=== PATIENT | female | born 1965 | race Caucasian/White ===

== ENCOUNTER 2019-04-13 07:46 | Day surgery (SDC) | payer MEDICARE, MEDICAID, SELFPAY ==
[2019-04-11 12:29] VITALS: BMI 41.1
[2019-04-11 13:12] LABS: OR HCG Qualitative Urine Negative (Negative)
[2019-04-11 13:53] LABS: Add Urine Microscopic? NO
[2019-04-11 14:01] LABS: Urine Appearance Clear (CLEAR); Urine Color Yellow (Yellow)
[2019-04-11 14:02] LABS: Bilirubin Urine Neg (NEGATIVE); Blood Urine Neg (Negative); Glucose Urine UA Norm (Normal); Ketones Urine Negative (Negative); Leukocyte Esterase Urine Negative (Negative); Nitrate Urine Negative (Negative); Protein Urine Neg (Negative); Specific Gravity, Urine 1.005 (1.005-1.030); Sulfosalicylic Acid Urine Negative; Urobilinogen Urine Norm (Negative)
[2019-04-11 16:22] LABS: Hematocrit 45.5 % (37.0-47.0); Hemoglobin 14.5 g/dL (11.5-15.3); Mean Corpuscular HGB Conc 31.9 g/dL (30.0-36.0); Mean Corpuscular Hemoglobin 30.4 pg (28.0-34.0); Mean Corpuscular Volume 95.4 fL (81-99); Mean Platelet Volume 11.7 fL (7.4-10.4); Platelet Count 215 10^3/cmm (130-400); Red Blood Count 4.77 10^6/uL (4.1-5.3); Red Cell Distribution Width 12.9 % (12.1-15.1); White Blood Count 9.1 10^3/uL (4.0-10.0)
[2019-04-11 16:57] LABS: Anion Gap 16.6 (5-19); Blood Urea Nitrogen 13 mg/dL (6-20); Calcium 10.4 mg/Dl (8.6-10.0); Carbon Dioxide 29 mmol/L (22-29); Chloride 100 mmol/L (98-107); Glomerular Filtration Rate 75.3 mL/min (90-130); Glucose 108 mg/dL (74-109); Potassium 4.6 mmol/L (3.5-5.1); Sodium 141 mmol/L (136-145)
[2019-04-11 23:17] LABS: Absolute Segmented Neutrophil 6.4 10/cmm (1.6-7.1); Lymphocytes 24 %; Monocytes Absolute 0.5 10^3/cmm (0.1-0.6); Segmented Neutrophils 71 %; Total Cells Counted 100 (0-100)
[2019-04-11 23:18] LABS: Giant Platelets Trace; Platelet Estimate Normal (Normal)
[2019-04-13] VITALS (7 sets, daily range): BP systolic 103–139; BP diastolic 58–91; PULSE 81–98; RESP 18; TEMP 36.1–37.1; O2SAT 90–96
[2019-04-13] MEDS: sodium chloride 0.9% 1,000 ML 30 ML IV (09:44)
--- NOTE | 2019-04-13 10:23 | PM.HPUD ---
H&P update H&P Update: DATE OF SURGERY/PROCEDURE: 04/13/19 DATE H&P PERFORMED: 04/11/19 H&P UPDATE INFORMATION: H&P completed within last 30 days, No changes to prior documentation and H&P is in [facility] [place] EMR on date indicated PLANNED PROCEDURE: Operation Date: 04/13/19 09:15 Proposed Procedures p Cervical Cone Biopsy 53260(Not Applicable) - Rudolph Underwood MD Full H&P Medications/Allergies: Current Medications: Current Medications Generic Name Dose Route Start Last Admin Trade Name Freq PRN Reason Stop Dose Admin Sodium Chloride 1,000 mls @ 30 ml s/hr 04/13/19 08:00 04/13/19 09:44 Sodium Chloride 0.9% IV 04/14/19 07:59 30 mls/hr .Q24H KHADIJAH Administration Perinent History: Medical/Surgical History: Medical History (Updated 04/11/19 @ 11:10 by Rudolph Underwood MD) HSIL (high grade squamous intraepithelial lesion) on Pap smear of cervix (Acute) Family History: Family History (Updated 04/05/19 @ 14:31 by Cate Maddox RN) Mother Hypertension Heart disease Stroke Hyperlipidemia Father Heart disease Social History: Social History Smoking and tobacco status: current every day smoker cigarettes Packs smoked per day: 0.25 Alcohol intake: current Alcohol intake frequency: holidays/special occasions only Additional social history: well balanced diet
[2019-04-13] MEDS: midazolam 1 mg/mL INJ 2 mL 2 MG IVP (10:41)
--- NOTE | 2019-04-13 11:12 | SUR.OPER ---
4ML LUGOLS WAS USED ON THE CERVIX, 4ML WASTED. LOT [id number] EXP 01/23. VINEGAR 4ML WAS PUT ON THE STERILE FIELD BUT WASTED. MONSELS WAS USED ON THE CERVIX.
--- NOTE | 2019-04-13 11:38 | P.OP_ITS ---
Operative Report Post-Operative Note: Date of procedure: 04/13/19 Preop Diagnosis: High- grade squamous intraepithelial lesion, moderate dysplasia Post-op diagnosis: same Post-op Findings: Normal cervix Procedure Done: Cervical cone biopsy Specimens removed/disposition: Cervical cone biopsy Surgeon: Rudolph Underwood Estimated blood loss (mL): 5 IV fluids (mL): 1,000 Complications: None Condition: stable Disposition: PACU Operative Report: Brief History: 53-year-old female with abnormal cervical cancer screening with a high-grade squamous intraepithelial lesion, post colposcopy biopsy showing moderate dysplasia. Procedure: After informed consent, the patient was taken to the operating room where general anesthesia was administered without difficulty. After administration of general anesthesia, the patient was placed in the dorsal lithotomy position, and prepped and draped in the usual sterile fashion. A time-out procedure was performed. The patient was examined under anesthesia and found to have a normal uterus with normal adnexa. A weighted speculum was then placed in the patient's vagina and the anterior lip of the cervix grasped with the singed toothed tenaculum A uterine sound was then advanced into the cervix to determine its direction and length. The decending cervical branchs of the uterine arteries were ligated with 2-0 Vicryl bilaterally at the level of the internal os. Attention was then turned to the cervix where it was stain with Lugol?s solution to hightlight the lesion. The paracervical area was then circumferentially infiltrated using Lidocaine 1% with epinephrine. A FilmLoop Cone Biopsy Excisor was used to cut the cone biopsy in circular fashion and following removal of the specimen a suture was placed at the 12 o?clock location and fixed in formalin. Bleeding was minimal. The patient tolerated the procedure well, sponge, lap and needle counts were correct times two She was taken to the recovery room in good condition. 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
--- NOTE | 2019-04-13 13:30 | ANE.PACU ---
 Inpatient post-anesthesia follow up: Airway intact: Yes Vital signs: Temperature 97 F Pulse Rate [Left] 82 Respiratory Rate 18 Blood Pressure [Le ft Arm] 139/88 Blood Pressure [Ri ght Arm] 131/91 Pulse Oximetry 94 Oxygen Delivery Me thod Room Air Oxygen Flow Rate 3 Fraction of Inspir ed Oxygen Hydration adequate: Yes Nausea and vomiting: No Mental status: Baseline
== END 2019-04-13 13:30 | disposition home or self-care (01) ==
PROVIDERS: Family Provider Family Medicine; PCP Family Medicine; Visit Provider Obstetrics & Gynecology
PROC: 0UBC7ZZ Excision of Cervix, Via Natural or Artificial Opening (ICD-10-PCS; CPT 57520; principal; 2019-04-13 09:15)
DX: D06.9 Carcinoma in situ of cervix, unspecified (principal); F17.210 Nicotine dependence, cigarettes, uncomplicated; Z82.49 Family history of ischemic heart disease and other diseases of the circulatory system; Z82.3 Family history of stroke
CPT/HCPCS: 57522; 36415; 80048; 81003; 84703; 85007; 85027; 86850; 86900; 88307; J0690; J1100; J2001; J2250; J2405; J2704; J3010; J7030

== ENCOUNTER 2019-05-04 11:25 | Observation (INO) | payer MEDICARE, MEDICAID, SELFPAY ==
[2019-05-02 13:32] VITALS: BMI 41.1
--- NOTE | 2019-05-02 13:53 | ANES.PREANES ---
Pre-Anesthetic Assessment Pre-Anesthetic Assessment: Height/Weight: Height 1.57 m Weight 102.058 kg Preop Diagnosis: High-grade squamous intraepithelial lesion, moderate dysplasia Proposed Procedure: Operation Date: 05/04/19 10:40 Proposed Procedures p Total Vaginal Hysterectomy 15390 D06.9 R87.613(Bilateral) - Rudolph Underwood MD s Salpingo-Oophorectomy (Vaginal)(Bilateral) - Rudolph Underwood MD Familial anesthetic complications: No Was Beta Samson taken within 24 hours: N/A Social: Social History: No alcohol and No tobacco Packs per day: former smoker (quit on 3rd - prior 1 ppd) Exam: Pre-Anes Outpt Exam: alert, oriented x 3, clear to auscultation bilaterally and regular rate & rhythm Airway: Cervical ROM: WNL MP: 3 Dentition: Full Pulmonary: Pulmonary: COPD and Sleep apnea (Non compliant with cpap) Comments: recent sinusitis (allergies acting up) CV/HEM: CV/HEM: None reported : : None reported Hepatic: Hepatic: None reported GI: GI: None reported Metabolic: Metabolic: None reported Musc/skel: Musc/skel: Fibromyalgia Neuropsych: Neuropsych: Anxiety Anesthetic Plan: ASA status: III Anesthesia: General Risk of > 500 ml blood loss (7ml/kg in children): No PFSH Anesthesia PFSH: Medical History HSIL (high grade squamous intraepithelial lesion) on Pap smear of cervix (Acute) Social History (Updated 05/02/19 @ 11:16 by Cate Maddox RN) Smoking and tobacco status: former smoker Quit status (tobacco): has quit using tobacco Former quit date comment: 04/08/2019 Alcohol intake: current Alcohol intake frequency: holidays/special occasions only Substance/Drug Use: never Additional social history: well balanced diet Female Reproductive History: Date of last menstrual period: 04/27/18 Data Anesthesia Cardiac Studies: No Data to Display
[2019-05-04] VITALS (19 sets, daily range): BP systolic 105–148; BP diastolic 71–102; PULSE 73–95; RESP 13–20; TEMP 36.2–36.8; O2SAT 92–99; BMI 41.1
[2019-05-04] MEDS: scopolamine 1.5 Patch 1 PATCH TRANSDERMA (08:19)
[2019-05-04] MEDS: sodium chloride 0.9% 1,000 ML 30 ML IV (08:20)
[2019-05-04 08:58] LABS: Basophils # 0.1 10^3/uL (0.0-0.1); Basophils % 0.7 %; Eosinophils # 0.2 10^3/uL (0.0-0.8); Eosinophils % 3.1 %; Hematocrit 44.2 % (37.0-47.0); Hemoglobin 14.5 g/dL (11.5-15.3); Lymphocytes # 2.7 10^3/uL (0.8-4.8); Lymphocytes % 36.6 %; Mean Corpuscular HGB Conc 32.8 g/dL (30.0-36.0); Mean Corpuscular Hemoglobin 31.6 pg (28.0-34.0); Mean Corpuscular Volume 96.3 fL (81-99); Mean Platelet Volume 12.1 fL (7.4-10.4); Monocytes # 0.6 10^3/uL (0.2-0.9); Monocytes % 7.6 %; Neutrophils # 3.8 10^3/uL (1.8-7.7); Neutrophils % 51.7 %; Nucleated Red Blood Cells % 0 %; Platelet Count 216 10^3/cmm (130-400); Red Blood Count 4.59 10^6/uL (4.1-5.3); Red Cell Distribution Width 13.2 % (12.1-15.1); White Blood Count 7.4 10^3/uL (4.0-10.0)
--- NOTE | 2019-05-04 08:59 | PM.HPUD ---
H&P update H&P Update: DATE OF SURGERY/PROCEDURE: 05/04/19 DATE H&P PERFORMED: 05/02/19 H&P UPDATE INFORMATION: H&P completed within last 30 days and No changes to prior documentation PLANNED PROCEDURE: Operation Date: 05/04/19 08:50 Proposed Procedures p Total Vaginal Hysterectomy 76480 D06.9 R87.613(Bilateral) - Rudolph Underwood MD s Salpingo-Oophorectomy (Vaginal)(Bilateral) - Rudolph Underwood MD Full H&P Medications/Allergies: Current Medications: Current Medications Generic Name Dose Route Start Last Admin Trade Name Freq PRN Reason Stop Dose Admin Sodium Chloride 1,000 mls @ 30 ml s/hr 05/04/19 07:30 05/04/19 08:20 Sodium Chloride 0.9% IV 05/05/19 07:29 30 mls/hr .Q24H KHADIJAH Administration Perinent History: Medical/Surgical History: Medical History (Updated 04/11/19 @ 11:10 by Rudolph Underwood MD) HSIL (high grade squamous intraepithelial lesion) on Pap smear of cervix (Acute) Family History: Family History (Updated 04/05/19 @ 14:31 by Cate Maddox RN) Mother Hypertension Heart disease Stroke Hyperlipidemia Father Heart disease Social History: Social History Smoking and tobacco status: former smoker Quit status (tobacco): has quit using tobacco Former quit date comment: 04/08/2019 Alcohol intake: current Alcohol intake frequency: holidays/special occasions only Additional social history: well balanced diet
[2019-05-04 09:00] LABS: Add Urine Microscopic? YES; Bilirubin Urine Neg (NEGATIVE); Blood Urine 2+ (Negative); Glucose Urine UA Norm (Normal); Ketones Urine Negative (Negative); Leukocyte Esterase Urine 2+ (Negative); Nitrate Urine Negative (Negative); Protein Urine Neg (Negative); Urine Appearance SL Hazy (CLEAR); Urine Color Yellow (Yellow); Urobilinogen Urine Norm (Negative)
[2019-05-04] MEDS: estrogens Conjugated Cream 30 gm 1 APPLIC VAGINAL (09:02)
[2019-05-04 09:29] LABS: Add Urine Culture? Yes; Bacteria Urine TRACE; Mucus Urine 1+; Squamous Epithelial Cell Urine 0-4 (0-5)
[2019-05-04 09:39] LABS: Alanine Aminotransferase 18 U/L (0-33); Alkaline Phosphatase 86 IU/L (35-105); Anion Gap 14.1 (5-19); Aspartate Amino Transferase 13 U/L (0-32); Blood Urea Nitrogen 19 mg/dL (6-20); Carbon Dioxide 24 mmol/L (22-29); Chloride 104 mmol/L (98-107); Globulin 3.5 g/dL (1.3-4.6); Glomerular Filtration Rate 65.8 mL/min (90-130); Glucose 95 mg/dL (74-109); Potassium 4.1 mmol/L (3.5-5.1); Sodium 138 mmol/L (136-145); Total Bilirubin 0.2 mg/dL (0.15-1.2); Total Protein 7.5 g/dL (6.6-8.7)
[2019-05-04 09:39] LABS: OR HCG Qualitative Urine Negative (Negative)
[2019-05-04] MEDS: vasopressin 20 unit/mL INJ INJECTION (10:37)
--- NOTE | 2019-05-04 10:59 | P.OP_ITS ---
Operative Report Date of procedure: 05/18/19 Pre-op Diagnosis: High-grade squamous intraepithelial lesion, severe dysplasia Post-op diagnosis: same Post-op Findings: normal size uterus, normal left ovary and tube Procedure Done: total vaginal hysterectomy with left salpingo-oophorectomy Surgeon: Rudolph Underwood Surgeon: Rudolph Underwood M.D. Estimated blood loss (mL): 200 IV fluids (mL): 700 Urine output (mL): 100 Condition: stable Disposition: PACU Brief History: 53-year-old female with an abnormal Pap smear high-grade JOHN and biopsy with ARELY-3 Procedure: After informed consent and risks, benefits, indications and alternatives reviewed with the patient was taken to the operating room. The patient was placed in dorsal lithotomy position prepped, and draped in the usual sterile fashion. The pre-procedure timeout verifying the correct patient, procedure, site and side, could not requirements was performed and acknowledge by the OR team. A Waggoner catheter was placed. A Bookwalter vaginal retractor was placed into the vagina in usual manner visualize the cervix. Cervix was grasped with a single tooth tenaculum and circumferentially infiltrated with 2% Xylocaine with epinephrine. Then cervix was circumferentially incised with bovie and the bladder was dissected off the pubovesical cervical fascia anteriorly with a sponge stick and Metzenbaum scissors. The anterior peritoneal reflection was identified and the anterior cul-de-sac was entered sharply with Metzenbaum scissors. The same procedure was performed posteriorly and a posterior colpotomy was made through the posterior cul-de-sac space without difficulty and the posterior blade of the Bookwalter vaginal retractor was advanced posteriorly into the cul-de-sac. At this time, the left and right uterosacral ligaments were isolated and ligated with 0 Vicryl. The Enseal device was placed over the uterosacral ligaments on either side and was then used in a serial fashion up through the cardinal ligaments bilaterally cross-clamped, cut, and sealed with the Enseal device. Finally, the uterine arteries were cross-clamped, cut, sealed and ligated with the Enseal device. Hemostasis was assured. The broad ligaments were then serially clamped, sealed and cut with the Enseal device on both sides. Excellent hemostasis was visualized. Both cornua were clamped, sealed and cut with the Enseal device. Then the pedicles were then suture ligated with excellent hemostasis. The uterus was excised and submitted for pathologic evaluation. No other abno rmalities were noted in the pelvic cavity. At this time the left ovary and fallopian tube were grasped with a Darnell and using the Enseal device the left ovary and fallopian tube were excised. Same procedure was attempted on the right side however the right fallopian tube and ovary were not found due to body habitus and bowel interference after several attempts. The peritoneum was then closed in a pursestring fashion with 0 Vicryl suture. The vaginal cuff angles were closed with [id number] #0 Vicryl suture on both sides and transfixed with the ipsilateral cardinal and uterosacral ligaments. The remainder of the vaginal cuff was closed with #0 Vicryl in a running locked fashion. At this time, instruments were removed from the vagina at hemostasis assured. Then the Waggoner catheter was removed and cystoscope was inserted. The bladder was filled with sterile water. Complete evaluation of the bladder mucosa was performed noting no lacerations, dimpling, tears, bleeding of the mucosa or muscular layers. Both ureteral orifices were identified. Prompt excretion of urine from both ureteral orifices was noted. Cystoscope was withdrawn. Waggoner catheter was then placed yielding clear lupe urine. A vaginal packing with Premarin cream was placed and the patient was taken out of dorsal lithotomy position and awakened from the general anesthesia. The patient tolerated the procedure well and was taken to the PACU recovery room in a stable condition. Sponge, lap, needle and instruments counts were correct x3.
--- NOTE | 2019-05-04 11:05 | SUR.PHASEI ---
1102 PATIENT TO PACU AT THIS TIME FROM OR VIA [facility]. RR EVEN AND UNLABORED. PT NOTED TO BE SNORING. PLACED ON SIMPLE MASK AT 8L, SPO2 97%. SHERMAN CATH IN PLACE, SECURED TO RIGHT LEG. TIAN PAD IN PLACE.
--- NOTE | 2019-05-04 11:54 | SUR.PHASEI ---
PATIENT REMAINS DROWSY, WHEN ASKED IF SHE IS HURTING SHE SHAKES HER HEAD YES AND QUICKLY CLOSES HER EYES. RR EVEN AND UNLABORED. B/P 131/73.
--- NOTE | 2019-05-04 12:16 | SUR.PHASEI ---
1159 PATIENT TO OB 203-2 AT THIS TIME. RR EVEN AND UNLABORED. PATIENT REMAINS DROWSY, RESPONDS TO VERBAL STIMULI. SHERMAN CATH IN PLACE. PATIENT FACES PAIN 0/10
[2019-05-04] MEDS: lactated ringers 1,000 ML 100 ML IV ×2 (13:05→23:24)
[2019-05-04] MEDS: HYDROcodone-acetaminophen 5-325 mg Tablet 1 TAB PO (15:29)
[2019-05-04] MEDS: baclofen 10 mg Tablet 20 MG PO ×2 (15:57→22:11)
[2019-05-04] MEDS: HYDROcodone-acetaminophen 5-325 mg Tablet PO ×2 (15:59→20:30)
[2019-05-04] MEDS: montelukast sodium 10 mg Tablet PO (22:11)
[2019-05-04] MEDS: trazodone 150 mg Tablet 300 MG PO (22:11)
[2019-05-05] MEDS: HYDROcodone-acetaminophen 5-325 mg Tablet PO ×3 (03:58→16:33)
[2019-05-05 04:00] VITALS: BP 117/72; PULSE 82; RESP 18; O2SAT 96
[2019-05-05 08:45] VITALS: PULSE 76; RESP 16; O2SAT 96
[2019-05-05 08:53] LABS: Basophils # 0.1 10^3/uL (0.0-0.1); Basophils % 0.5 %; Eosinophils # 0.2 10^3/uL (0.0-0.8); Eosinophils % 1.6 %; Hematocrit 40.5 % (37.0-47.0); Hemoglobin 12.8 g/dL (11.5-15.3); Lymphocytes # 1.8 10^3/uL (0.8-4.8); Lymphocytes % 16.1 %; Mean Corpuscular HGB Conc 31.6 g/dL (30.0-36.0); Mean Corpuscular Hemoglobin 31.4 pg (28.0-34.0); Mean Corpuscular Volume 99.5 fL (81-99); Monocytes # 0.5 10^3/uL (0.2-0.9); Monocytes % 4.2 %; Neutrophils # 8.5 10^3/uL (1.8-7.7); Neutrophils % 77.4 %; Nucleated Red Blood Cells % 0 %; Platelet Count 173 10^3/cmm (130-400); Red Blood Count 4.07 10^6/uL (4.1-5.3); Red Cell Distribution Width 13.2 % (12.1-15.1); White Blood Count 10.9 10^3/uL (4.0-10.0)
[2019-05-05] MEDS: buPROPion XL (24 HR) 300 mg Tablet PO (09:03)
[2019-05-05] MEDS: buPROPion XL (24 HR) 150 mg Tablet PO (09:03)
[2019-05-05] MEDS: baclofen 10 mg Tablet 20 MG PO ×2 (09:04→14:42)
[2019-05-05] MEDS: divalproex ER 500 mg Tablet (24H) PO (09:04)
[2019-05-05] MEDS: pantoprazole DR 40 mg Tablet PO (09:05)
[2019-05-05] MEDS: duloxetine 60 mg Capsule PO (09:05)
[2019-05-05] MEDS: docusate sodium 100 mg Capsule PO (09:05)
[2019-05-05 10:19] VITALS: BP 159/88; PULSE 91; RESP 20; TEMP 36.4; O2SAT 96
--- NOTE | 2019-05-05 12:56 | PC.NURSE ---
Sherwin from older adult social work specialist called, asked if patient had any advance directives. The patient stated she did, and it gave control to her daughter. Nurse explained the next time the patient came in, she should bring a copy of that so we can have it on file in case it needed to be used. Patient acknowledged understanding. This was explained to Sherwin, who also acknowledged understanding.
--- NOTE | 2019-05-05 16:17 | P.DS_ITS ---
Discharge Providers RECONSTRUCTIVE SURGEON Date of Admission: 05/04/19 11:25 Date of Discharge: 05/05/19 Attending Provider at Admission: Rudolph Underwood MD Attending Provider at Discharge: Rudolph Underwood MD Primary Care Provider: Shanon Cabrera DO Diagnoses at Discharge Discharge Diagnosis (1) HSIL (high grade squamous intraepithelial lesion) on Pap smear of cervix: Status: Acute Reason for Visit Reason for Visit: Reason For Visit: Cervical Intraepithelial Neoplasia 3 High Grade sq Hospital Course Hospital Course: 53-year-old female with an abnormal pap smear with high-grade JOHN and Cervical biopsies ARELY-3. Admitted for planned total vaginal hysterectomy with bilateral salpingo-oophorectomy. The total vaginal hysterectomy was performed without complication however only left salpingo-oophorectomy was able to be performed. Right ovary and tube could not be identified after the hysterectomy. Postop observation was uneventful. She is tolerating diet well. Ambulating without difficulty. Pain under control. She is afebrile and hemodynamically stable. Urine output adequate with clear yellow urine. Physical Exam Narrative: EXAM NARRATIVE: GA: Alert and oriented ?3. HEENT: WNL. Heart: Regular rate and rhythm. Lungs: Clear to auscultation bilaterally. Abdomen: Bowel sounds present, nontender, minimal tenderness, pain or edema. 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 Extremities: No edema, no cyanosis, no calves pain. Urinary Catheter Management^: Waggoner: Cath Placed During This Visit: no Discharge Data Data Completed and Pending: Laboratory Tests 05/04/19 05/04/19 07:50 09:18 WBC 7.4 Hgb 14.5 Hct 44.2 Plt Count 216 Sodium 138 Potassium 4.1 Chloride 104 Carbon Dioxide 24 Anion Gap 14.1 BUN 19 Creatinine 0.9 GFR Calculation 65.8 L Glucose 95 Calcium 10.0 Pending at discharge Category Date Time Status Urine Culture Sta t Lab 05/04/19 07:50 Results Pathology: Surgic al [PTH] Routine Pth 05/04/19 10:57 Received Labs from last 24 hours 05/05/19 08:46 WBC 10.9 H RBC 4.07 L Hgb 12.8 Hct 40.5 MCV 99.5 H MCH 31.4 MCHC 31.6 RDW 13.2 Plt Count 173 MPV 11.0 H Neut % (Auto) 77.4 Lymph % (Auto) 16.1 [place] % (Auto) 4.2 Eos % (Auto) 1.6 Baso % (Auto) 0.5 Neut # (Auto) 8.5 H Lymph # (Auto) 1.8 [place] # (Auto) 0.5 Eos # (Auto) 0.2 Baso # (Auto) 0.1 Nucleated RBC % (a uto) 0 Nucleated RBCs # 0.0 Vitals: Last Vital Signs Temp 97.6 F 05/05/19 10:19 Pulse 91 05/05/19 10:19 Resp 20 H 05/05/19 10:19 BP 159/88 05/05/19 10:19 Pulse Ox 96 05/05/19 10:19 Discharge Plan Discharge Patient Disposition: Home, Self-Care Condition: Stable Prescriptions: New ferrous sulfate 325 mg (65 mg iron) tablet 325 mg PO BID Qty: 60 RF: 0 docusate sodium 100 mg Capsule 100 mg PO BID Qty: 60 RF: 0 Continued albuterol sulfate [ProAir HFA] 90 mcg/actuation HFA aerosol inhaler 2 puff INHALATION QID PRN (Reason: Cough) RF: 0 Trelegy Ellipta 100-62.5-25 mcg blister with device 1 inh INHALATION BID PRN (Reason: Allergy Symptoms) RF: 0 sumatriptan succinate [Imitrex] 100 mg tablet 1 mg PO DIRECTED PRN (Reason: Headache) RF: 0 duloxetine [Cymbalta] 60 mg capsule,delayed release(DR/EC) 60 mg PO DAILY RF: 0 hydroxyzine pamoate [Vistaril] 25 mg capsule 25 mg PO BID PRN (Reason: allergies) RF: 0 divalproex 500 mg tablet extended release 24 hr 500 mg PO DAILY RF: 0 solifenacin [Vesicare] 5 mg tablet 5 mg PO DAILY RF: 0 trazodone 150 mg tablet 300 mg PO .at bedtime RF: 0 Dexilant 60 mg Capsule,Biphase Delayed Releas 60 mg PO DAILY RF: 0 hydrocodone-acetaminophen 10-325 mg tablet 2 tab PO Q4-5H PRN (Reason: Pain) RF: 0 montelukast [Singulair] 10 mg tablet 10 mg PO BEDTIME RF: 0 bupropion HCl 300 mg tablet extended release 24 hr 300 mg PO DAILY RF: 0 bupropion HCl 150 mg tablet extended release 24 hr 150 mg PO DAILY RF: 0 olopatadine [Pataday] 0.2 % drops 1 drp ophthalmic (eye) PRN PRN (Reason: Dry Eyes) RF: 0 oxycodone 10 mg tablet 10 mg PO PRN PRN (Reason: Pain) RF: 0 baclofen 20 mg tablet 20 mg PO TID RF: 0 alprazolam [Xanax] 1 mg tablet 1 mg PO TID PRN (Reason: Anxiety) RF: 0 Discharge Orders: Discharge Order (Routine); Ordered 05/05/19 Ordered By: Rudolph Underwood Discharge Diet: Regular Discharge Activity: Increase activity as tolerated Activity Restrictions/Additional Instructions: Pelvic rest for 6 weeks. Return to the emergency room if any fever, increased bleeding or pain. 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
[2019-05-05 16:27] VITALS: BP 125/78; PULSE 87; RESP 19; TEMP 36.6; O2SAT 95
== END 2019-05-05 17:15 | disposition home or self-care (01) ==
LOC: OBGYN 11:26
PROVIDERS: Admitting Provider Obstetrics & Gynecology; Family Provider Family Medicine; PCP Family Medicine; Visit Provider Obstetrics & Gynecology
PROC: (CPT 58720; 2019-05-04 08:50)
DX: N87.1 Moderate cervical dysplasia (principal); Z87.891 Personal history of nicotine dependence; Z82.49 Family history of ischemic heart disease and other diseases of the circulatory system
CPT/HCPCS: 58262; 12345; 36415; 80053; 81001; 84703; 85025; 86850; 86900; 87077; 87086; 87186; 88309; 96360; 96361; G0378; J0694; J1885; J2001; J2250; J2405; J2704; J2710; J3010; J3490; J3535; J7030

== ENCOUNTER → 2019-06-23 13:14 | Outpatient (BNVA) | payer MEDICARE, MEDICAID, SELFPAY | PROVIDERS: Family Provider Family Medicine; PCP Family Medicine; Visit Provider Nurse Practitioner Psychiatric/Mental Health | DX: F31.81 Bipolar II disorder (principal); F17.290 Nicotine dependence, other tobacco product, uncomplicated; F43.12 Post-traumatic stress disorder, chronic; Z63.4 Disappearance and death of family member | CPT/HCPCS: 99213 ==

== ENCOUNTER → 2019-10-04 08:23 | Outpatient (BNVA) | payer MEDICARE, MEDICAID, SELFPAY | PROVIDERS: Family Provider Family Medicine; PCP Family Medicine; Visit Provider Nurse Practitioner Psychiatric/Mental Health | DX: Z63.4 Disappearance and death of family member (principal); F31.81 Bipolar II disorder; F17.290 Nicotine dependence, other tobacco product, uncomplicated; F43.12 Post-traumatic stress disorder, chronic; Z79.899 Other long term (current) drug therapy | CPT/HCPCS: 99213 ==

== ENCOUNTER → 2019-10-17 11:55 | Outpatient (BNVA) | payer MEDICARE, SELFPAY | PROVIDERS: Family Provider Family Medicine; PCP Family Medicine; Visit Provider Nurse Practitioner Psychiatric/Mental Health | DX: Z79.899 Other long term (current) drug therapy (principal) | CPT/HCPCS: 85025 ==

== ENCOUNTER 2019-10-17 12:43 | Outpatient (CLI) | payer MEDICARE, MEDICAID, SELFPAY ==
[2019-10-17 13:33] LABS: Basophils # 0.1 10^3/uL (0.0-0.1); Basophils % 0.8 %; Eosinophils # 0.2 10^3/uL (0.0-0.8); Eosinophils % 3.1 %; Hematocrit 44.7 % (37.0-47.0); Hemoglobin 13.5 g/dL (11.5-15.3); Lymphocytes # 3.1 10^3/uL (0.8-4.8); Lymphocytes % 42.7 %; Mean Corpuscular HGB Conc 30.2 g/dL (30.0-36.0); Mean Corpuscular Hemoglobin 30.5 pg (28.0-34.0); Mean Corpuscular Volume 101.1 fL (81-99); Monocytes # 0.6 10^3/uL (0.2-0.9); Monocytes % 7.6 %; Neutrophils # 3.27 10^3/uL (1.8-7.7); Neutrophils % 45.4 %; Nucleated Red Blood Cells % 0 %; Platelet Count 179 10^3/cmm (130-400); Red Blood Count 4.42 10^6/uL (4.1-5.3); Red Cell Distribution Width 13.6 % (12.1-15.1); White Blood Count 7.2 10^3/uL (4.0-10.0)
[2019-10-17 14:30] LABS: Estmated Average Glucose 114; Hemoglobin A1C 5.6 % (4.0-6.0)
[2019-10-17 14:44] LABS: Alanine Aminotransferase 24 U/L (0-33); Albumin Level 4.1 g/dL (3.5-5.2); Alkaline Phosphatase 78 IU/L (35-105); Anion Gap 12.3 (5-19); Aspartate Amino Transferase 14 U/L (0-32); Blood Urea Nitrogen 17 mg/dL (6-20); Calcium 8.9 mg/dL (8.5-10.5); Carbon Dioxide 26 mmol/L (22-29); Chloride 105 mmol/L (98-107); Chol HDL Ratio 4.71 mg/dL (0.0-4.40); Cholesterol 198 mg/dL (0-200); Globulin 3.2 g/dL (1.3-4.6); Glomerular Filtration Rate 65.5 mL/min (90-130); Glucose 102 mg/dL (65-115); HDL Cholesterol 42 mg/dL (60-100); LDL Cholesterol Calculated 120 mg/dL (50-129); LDL HDL Ratio 2.86 RATIO (0.00-3.22); Osmolality Calculated 285 mOsm/kg (285-295); Potassium 4.3 mmol/L (3.5-5.1); Sodium 139 mmol/L (136-145); Thyroid Stimulating Hormone 3.82 uIU/mL (0.27-4.20); Total Bilirubin 0.2 mg/dL (0.15-1.2); Total Protein 7.3 g/dL (6.6-8.7); Triglycerides 178 mg/dL (0-150)
[2019-10-17 14:56] LABS: 25 Hydroxy Vitamin D 23 ng/mL (30-100)
== END 2019-10-17 12:44 | disposition home or self-care (01) ==
LOC: LAB 12:48
PROVIDERS: PCP Family Medicine; Visit Provider Nurse Practitioner Psychiatric/Mental Health
DX: Z79.899 Other long term (current) drug therapy (principal); D06.9 Carcinoma in situ of cervix, unspecified
CPT/HCPCS: 80053; 80061; 82306; 83036; 84443; 85025

== ENCOUNTER → 2019-12-27 08:09 | Outpatient (BNVA) | payer MEDICARE, MEDICAID, SELFPAY ==
[2019-10-28 14:41] VITALS: BP 136/80; BMI 42.2
== END ==
PROVIDERS: PCP Family Medicine; Visit Provider Nurse Practitioner Psychiatric/Mental Health
DX: Z63.4 Disappearance and death of family member (principal); F31.81 Bipolar II disorder; F17.290 Nicotine dependence, other tobacco product, uncomplicated; F43.12 Post-traumatic stress disorder, chronic; F41.1 Generalized anxiety disorder
CPT/HCPCS: 99213

== ENCOUNTER → 2020-01-31 08:05 | Outpatient (BNVA) | payer MEDICARE, MEDICAID, SELFPAY ==
[2019-10-28 14:41] VITALS: BP 136/80; BMI 42.2
== END ==
PROVIDERS: PCP Family Medicine; Visit Provider Nurse Practitioner Psychiatric/Mental Health
DX: Z63.4 Disappearance and death of family member (principal); F43.12 Post-traumatic stress disorder, chronic; F31.81 Bipolar II disorder; F17.290 Nicotine dependence, other tobacco product, uncomplicated; F60.3 Borderline personality disorder
CPT/HCPCS: 99214

== ENCOUNTER → 2020-03-13 07:51 | Outpatient (BNVA) | payer MEDICARE, MEDICAID, SELFPAY ==
[2019-10-28 14:41] VITALS: BP 136/80; BMI 42.2
== END ==
PROVIDERS: PCP Family Medicine; Visit Provider Nurse Practitioner Psychiatric/Mental Health
DX: F43.12 Post-traumatic stress disorder, chronic (principal); F31.81 Bipolar II disorder; F17.290 Nicotine dependence, other tobacco product, uncomplicated; Z63.4 Disappearance and death of family member
CPT/HCPCS: 99214

== ENCOUNTER → 2020-04-17 08:11 | Outpatient (BNVA) | payer MEDICARE, MEDICAID, SELFPAY ==
[2019-10-28 14:41] VITALS: BP 136/80; BMI 42.2
== END ==
PROVIDERS: PCP Family Medicine; Visit Provider Nurse Practitioner Psychiatric/Mental Health
DX: F31.81 Bipolar II disorder (principal); Z63.4 Disappearance and death of family member; F43.12 Post-traumatic stress disorder, chronic; F17.211 Nicotine dependence, cigarettes, in remission; F43.10 Post-traumatic stress disorder, unspecified
CPT/HCPCS: 99214

== ENCOUNTER → 2020-05-29 08:06 | Outpatient (BNVA) | payer MEDICARE, MEDICAID, SELFPAY ==
[2019-10-28 14:41] VITALS: BP 136/80; BMI 42.2
== END ==
PROVIDERS: PCP Family Medicine; Visit Provider Nurse Practitioner Psychiatric/Mental Health
DX: F31.81 Bipolar II disorder (principal); Z63.4 Disappearance and death of family member; F43.12 Post-traumatic stress disorder, chronic; F17.211 Nicotine dependence, cigarettes, in remission
CPT/HCPCS: 99214

== ENCOUNTER → 2020-06-14 15:02 | Outpatient (BNVA) | payer MEDICARE, MEDICAID, SELFPAY ==
[2019-10-28 14:41] VITALS: BP 136/80; BMI 42.2
== END ==
PROVIDERS: PCP Family Medicine; Visit Provider Family Medicine
DX: N61.1 Abscess of the breast and nipple (principal)
CPT/HCPCS: 87070; 87075; 87205

== ENCOUNTER → 2020-07-17 09:08 | Outpatient (BNVA) | payer MEDICARE, MEDICAID, SELFPAY ==
[2020-06-25 16:29] VITALS: BP 136/80; BMI 42.2
== END ==
PROVIDERS: PCP Family Medicine; Visit Provider Nurse Practitioner Psychiatric/Mental Health
DX: F31.81 Bipolar II disorder (principal); Z63.4 Disappearance and death of family member; F43.12 Post-traumatic stress disorder, chronic; F17.210 Nicotine dependence, cigarettes, uncomplicated
CPT/HCPCS: 99214

== ENCOUNTER → 2020-07-20 14:20 | Outpatient (BNVA) | payer MEDICARE, MEDICAID, SELFPAY ==
[2020-06-25 16:29] VITALS: BP 136/80; BMI 42.2
== END ==
PROVIDERS: PCP Family Medicine; Visit Provider Surgery
DX: Z01.812 Encounter for preprocedural laboratory examination (principal); Z20.822 Contact with and (suspected) exposure to COVID-19
CPT/HCPCS: 87635

== ENCOUNTER 2020-07-24 06:38 | Day surgery (SDC) | payer MEDICARE, MEDICAID, SELFPAY ==
[2020-06-25 16:29] VITALS: BP 136/80; BMI 42.2
[2020-07-23 17:13] VITALS: BMI 44.8
[2020-07-24] VITALS (8 sets, daily range): BP systolic 106–145; BP diastolic 76–94; PULSE 78–93; RESP 18–20; TEMP 36.2–37.1; O2SAT 92–95
--- NOTE | 2020-07-24 07:01 | ANES.PREANE2 ---
Pre-Anesthetic Assessment Pre-Anesthetic Assessment: Height/Weight: Height 1.57 m Weight 111.13 kg Preop Diagnosis: Right breast mass Proposed Procedure: Operation Date: 07/24/20 08:10 Proposed Procedures p Excision right breast mass 65007 N60.89(Right) - Martínez Bateman MD Was Beta Samson taken within 24 hours: N/A Was Clonidine taken within 24 hours: N/A Social: Social History: Tobacco and No alcohol Exam: Pre-Anes Outpt Exam: alert, oriented x 3, clear to auscultation bilaterally and regular rate & rhythm Airway: Submandibular: WNL Cervical ROM: WNL MP: 2 Dentition: Full Pulmonary: Pulmonary: Asthma and COPD GI: GI: GERD Metabolic: Metabolic: Morbid obesity Neuropsych: Neuropsych: Anxiety, Bipolar, Depression and CALERO Anesthetic Plan: ASA status: 3 Anesthesia: Choice Risk of > 500 ml blood loss (7ml/kg in children): No PFSH Anesthesia PFSH: Medical History (Updated 07/17/20 @ 14:16 by Tami Chawla [facility]) Bereavement, uncomplicated Bipolar II disorder Chronic back pain Chronic post-traumatic stress disorder (PTSD) Cigarette nicotine dependence Episodic use COPD (chronic obstructive pulmonary disease) Fibromyalgia HSIL (high grade squamous intraepithelial lesion) on Pap smear of cervix Insomnia Migraine headache Recent surgical procedure on lower extremity left leg- 2015 Sleep apnea Stress incontinence Surgical History H/O knee surgery bilaterally History of carpal tunnel surgery of right wrist History of delivery S/P hysterectomy Total vaginal hysterectomy with left salpingo-oophorectomy performed on 05/04/2019 Family History Mother Hypertension Heart disease Stroke Hyperlipidemia Father Heart disease Social History Smoking and tobacco status: former smoker Second hand smoke exposure: Yes Alcohol intake: current Alcohol intake frequency: holidays/special occasions only Alcohol type: hard liquor Desire information about alcohol rehabilitation?: No Adopted: No Caregiver/support person: No Lives independently: Yes Household members: none Housing: Apartment Marital status: Single Number of children: 2 Number of grandchildren: 0 Highest education level completed: Associate Degree: Occupational, Technical, Vocational Program service: No Current occupational status: disabled Current occupational exposures/hazards: No Pets and animals: No History of recent travel: No Leisure activites: art, games and reading Sexually active: No Current gender identity: Female Barbara/Gnosticist: Congregation Special barbara needs: No Agree to transfusion: Yes Financial difficulty paying for basics: Somewhat Hard Additional social history: well balanced diet Female Reproductive History: Para: 2 Spontaneous abortions: No Data Anesthesia Cardiac Studies: No Data to Display
[2020-07-24] MEDS: sodium chloride 0.9% 1,000 ML 30 ML IV (07:32)
--- NOTE | 2020-07-24 07:59 | W.PM.OPSUD ---
Surgery/Procedure H&P Update DATE OF PROCEDURE: July 24, 2020 DATE H&P PERFORMED: 07/11/20 H&P UPDATE INFORMATION: I have reviewed H&P completed within last 30 days, I have examined patient prior to procedure and No changes to prior documentation PREOP DIAGNOSIS: Right breast mass PRIMARY INDICATION FOR PROCEDURE: THE SAME PLANNED PROCEDURE: Operation Date: 07/24/20 08:10 Proposed Procedures p Excision right breast mass 92900 N60.89(Right) - Martínez Bateman MD
[2020-07-24] MEDS: lidocaine 2% INJ 20 mL (08:20)
--- NOTE | 2020-07-24 08:32 | PM.OP ---
Operative Report Date of procedure: July 24, 2020 Pre-op Diagnosis: Right breast mass Post-op diagnosis: same Procedure Done: Excision of right breast mass 2 x 1 x 1 cm Specimens removed/disposition: Right breast mass likely sebaceous cyst Surgeon: Martínez Bateman Napkin Band Wrapper: Surgical abdoulaye Jimenez Circulating nurse Chloe Anesthesia: General (LMA poultry processor Jael) Estimated blood loss (mL): 5 Condition: stable Disposition: same day Brief History: Right breast mass. Full H&P and informed consent per chart. Procedure: After identifying the patient holding area, the right breast was marked before the procedure by myself, patient was then taken to the operative suite, was placed in supine position, LMA was placed by anesthesia, prophylactic IV antibiotics were given per protocol, right arm was placed in 90? to her body, prep and drape of the right pectoralis region was done under the usual sterile technique. Timeout was done verifying the patient's name/date of /planned procedure and destination after the procedure, all were in agreement. After palpation of the breast lump I did add elliptical/transverse incision on top of the mass. I was able to dissect using the Bovie cautery at good margin of normal breast tissue surrounding the mass all the way to the subcutaneous tissues, and appropriate orientation was done for the breast mass in the form of, short superior sutures, long lateral sutures, and the specimen was taken out and passed to the circulating nurse for permanent pathology Thorough irrigation of the cavity was done and hemostasis, followed by deep dermal closure by 3-0 Vicryl, then 4-0 Monocryl for skin closure. Lidocaine 2% was injected at the site of the incision, Mastisol and Steri-Strips were applied followed by dry dressing in the form of Telfa and Tegaderm. Patient tolerated the procedure well, count of instruments and sponges were completed at the end of the procedure. And then patient was taken to the recovery area in stable condition. Was present for the whole entire procedure
--- NOTE | 2020-07-24 17:08 | ANE.PACU2 ---
Inpatient post-anesthesia follow up: Airway intact: Yes Vital signs: Temperature 98.7 F Pulse Rate 78 Respiratory Rate 18 Blood Pressure 145/89 Pulse Oximetry 92 Oxygen Delivery Me thod Room Air Oxygen Flow Rate 2 Fraction of Inspir ed Oxygen Hydration adequate: Yes Nausea and vomiting: No Pain level: 1 Mental status: Baseline
== END 2020-07-24 09:32 | disposition home or self-care (01) ==
PROVIDERS: PCP Family Medicine; Visit Provider Surgery
PROC: (CPT 19120; principal; 2020-07-24 08:00)
DX: N63.0 Unspecified lump in unspecified breast (principal); J44.9 Chronic obstructive pulmonary disease, unspecified; E66.01 Morbid (severe) obesity due to excess calories; Z68.41 Body mass index [BMI] 40.0-44.9, adult; M79.7 Fibromyalgia; G47.30 Sleep apnea, unspecified; Z87.891 Personal history of nicotine dependence
CPT/HCPCS: 19120; 88305; J0690; J1100; J2250; J2405; J2704; J3010; J7030

== ENCOUNTER → 2020-09-04 08:07 | Outpatient (BNVA) | payer MEDICARE, MEDICAID, SELFPAY ==
[2020-06-25 16:29] VITALS: BP 136/80; BMI 42.2
== END ==
PROVIDERS: PCP Family Medicine; Visit Provider Nurse Practitioner Psychiatric/Mental Health
DX: F31.81 Bipolar II disorder (principal); Z63.4 Disappearance and death of family member; F43.12 Post-traumatic stress disorder, chronic; F17.210 Nicotine dependence, cigarettes, uncomplicated
CPT/HCPCS: 99214

== ENCOUNTER → 2020-12-06 09:01 | Outpatient (BNVA) | payer MEDICARE, MEDICAID, SELFPAY ==
[2020-06-25 16:29] VITALS: BP 136/80; BMI 42.2
== END ==
PROVIDERS: PCP Family Medicine; Visit Provider Nurse Practitioner Psychiatric/Mental Health
DX: F31.81 Bipolar II disorder (principal); F43.12 Post-traumatic stress disorder, chronic; F17.210 Nicotine dependence, cigarettes, uncomplicated; Z79.899 Other long term (current) drug therapy; Z63.4 Disappearance and death of family member
CPT/HCPCS: 99214

== ENCOUNTER → 2020-12-07 10:08 | Outpatient (BNVA) | payer MEDICARE, MEDICAID, SELFPAY ==
[2020-06-25 16:29] VITALS: BP 136/80; BMI 42.2
== END ==
PROVIDERS: PCP Family Medicine; Visit Provider Nurse Practitioner Psychiatric/Mental Health
DX: Z79.899 Other long term (current) drug therapy (principal)
CPT/HCPCS: 80061; 83036

== ENCOUNTER → 2021-01-10 08:25 | Outpatient (BNVA) | payer MEDICARE, MEDICAID, SELFPAY ==
[2020-06-25 16:29] VITALS: BP 136/80; BMI 42.2
== END ==
PROVIDERS: PCP Family Medicine; Visit Provider Nurse Practitioner Psychiatric/Mental Health
DX: F31.81 Bipolar II disorder (principal); F43.12 Post-traumatic stress disorder, chronic; Z63.4 Disappearance and death of family member
CPT/HCPCS: 99214

== ENCOUNTER → 2021-02-21 08:36 | Outpatient (BNVA) | payer MEDICARE, MEDICAID, SELFPAY ==
[2020-06-25 16:29] VITALS: BP 136/80; BMI 42.2
== END ==
PROVIDERS: PCP Family Medicine; Visit Provider Nurse Practitioner Psychiatric/Mental Health
DX: F31.81 Bipolar II disorder (principal); F43.12 Post-traumatic stress disorder, chronic; Z63.4 Disappearance and death of family member
CPT/HCPCS: 99214

== ENCOUNTER → 2021-03-25 07:59 | Outpatient (BNVA) | payer MEDICARE, MEDICAID, SELFPAY ==
[2020-06-25 16:29] VITALS: BP 136/80; BMI 42.2
== END ==
PROVIDERS: PCP Family Medicine; Visit Provider Nurse Practitioner Psychiatric/Mental Health
DX: F31.81 Bipolar II disorder (principal); F43.12 Post-traumatic stress disorder, chronic; Z63.4 Disappearance and death of family member
CPT/HCPCS: 99214

== ENCOUNTER → 2021-04-23 07:15 | Outpatient (BNVA) | payer MEDICARE, MEDICAID, SELFPAY ==
[2020-06-25 16:29] VITALS: BP 136/80; BMI 42.2
== END ==
PROVIDERS: PCP Family Medicine; Visit Provider Nurse Practitioner Psychiatric/Mental Health
DX: F31.81 Bipolar II disorder (principal); F43.12 Post-traumatic stress disorder, chronic; Z63.4 Disappearance and death of family member
CPT/HCPCS: 99214

== ENCOUNTER → 2021-05-13 13:11 | Outpatient (BNVA) | payer MEDICARE, MEDICAID, SELFPAY ==
[2020-06-25 16:29] VITALS: BP 136/80; BMI 42.2
== END ==
PROVIDERS: PCP Family Medicine; Visit Provider Surgery
DX: Z01.812 Encounter for preprocedural laboratory examination (principal)
CPT/HCPCS: 87635

== ENCOUNTER → 2021-05-28 07:17 | Outpatient (BNVA) | payer MEDICARE, MEDICAID, SELFPAY ==
[2020-06-25 16:29] VITALS: BP 136/80; BMI 42.2
== END ==
PROVIDERS: PCP Family Medicine; Visit Provider Nurse Practitioner Psychiatric/Mental Health
DX: F31.81 Bipolar II disorder (principal); Z63.4 Disappearance and death of family member; F43.12 Post-traumatic stress disorder, chronic
CPT/HCPCS: 99214

== ENCOUNTER → 2021-06-14 08:25 | Outpatient (BNVA) | payer MEDICARE, MEDICAID, SELFPAY ==
[2020-06-25 16:29] VITALS: BP 136/80; BMI 42.2
== END ==
PROVIDERS: PCP Family Medicine; Visit Provider Nurse Practitioner
DX: G43.709 Chronic migraine without aura, not intractable, without status migrainosus (principal); Z87.891 Personal history of nicotine dependence
CPT/HCPCS: 99204

== ENCOUNTER → 2021-06-21 10:53 | Outpatient (BNVA) | payer MEDICARE, MEDICAID, SELFPAY ==
[2020-06-25 16:29] VITALS: BP 136/80; BMI 42.2
== END ==
PROVIDERS: PCP Family Medicine; Visit Provider Surgery
DX: Z11.52 Encounter for screening for COVID-19 (principal)
CPT/HCPCS: 87635

== ENCOUNTER 2021-06-26 06:29 | Day surgery (SDC) | payer MEDICARE, MEDICAID, SELFPAY ==
[2020-06-25 16:29] VITALS: BP 136/80; BMI 42.2
[2021-05-16 09:53] VITALS: BMI 42.6
--- NOTE | 2021-06-26 06:53 | P.ANESASSM_ITS ---
Pre-Anesthetic Assessment Height/Weight: Height 1.57 m Weight 105.687 kg Preop Diagnosis: diagnostic Operation Date: 06/26/21 08:00 Proposed Procedures p Colonoscopy 40021 Z12.11(Not Applicable) - Héctor Perkins MD Was Beta Samson taken within 24 hours: N/A Was Clonidine taken within 24 hours: N/A Social Tobacco (former smoker quit about 1 year ago off and on - currently vapes) and No alcohol Exam alert and oriented x 3 Airway Submandibular: within normal limits Cervical ROM: within normal limits Mallampati: Class II Dentition: full History/ROS No significant history except as noted Pulmonary Asthma, Chronic Obstructive Pulmonary Disease and Sleep Apnea CV/HEM None reported None reported Hepatic None reported GI Gastroesophageal Reflux Disease Metabolic Morbid Obesity [facility] [place]/skel None reported Neuropsych None reported Anesthetic Plan ASA status: 3 Anesthesia: Anesthesia Evaluation and MAC Risk of > 500 ml blood loss (7ml/kg in children): No Medications/Allergies Home Medications Medication Instructions Recorded Confirmed Last Taken Type montelukast 10 mg tablet 10 mg PO BEDTIME 04/13/19 06/24/21 05/03/19 History (Singulair) olopatadine 0.2 % eye drops 1 drp OPHTHALMIC (EYE) PRN PRN 04/13/19 06/24/21 04/12/19 History (Pataday) dexlansoprazole 60 mg 60 mg PO DAILY #30 cap 04/17/20 06/24/21 07/23/20 Rx capsule,biphase delayed release (Dexilant) mupirocin 2 % topical ointment 1 applic TOPICAL TID 7 Days #22 g 06/25/20 06/24/21 Unknown Rx alprazolam 1 mg tablet (Xanax) 1 mg PO TID PRN #90 tab 12/06/20 06/24/21 Unknown Rx hydroxyzine pamoate 25 mg capsule 25 mg PO BID PRN #60 cap 01/22/21 06/24/21 Unknown Rx (Vistaril) albuterol sulfate 90 mcg/actuation 2 puff INHALATION QID PRN #8.5 gm 03/08/21 06/24/21 Unknown Rx aerosol inhaler (ProAir HFA) loratadine 10 mg tablet (Claritin) 10 mg PO DAILY 03/08/21 06/24/21 Unknown History topiramate 100 mg tablet (Topamax) 100 mg PO BID #60 tab 03/25/21 06/24/21 Unkn own Rx aripiprazole 15 mg tablet (Abilify) 15 mg PO DAILY #30 tab 04/23/21 06/24/21 Unknown Rx duloxetine 60 mg capsule,delayed 60 mg PO .morning #30 cap 04/23/21 06/24/21 Unknown Rx release (Cymbalta) trazodone 150 mg tablet 150 mg PO .at bedtime #30 tab 04/23/21 06/24/21 Unknown Rx bupropion HCl 300 mg 24 hr tablet, 300 mg PO DAILY 05/16/21 06/24/21 Unknown History extended release duloxetine 30 mg capsule,delayed 30 mg PO DAILY 05/16/21 06/24/21 Unknown History release fluticasone fur. 100 mcg-umeclid 1 inh INHALATION BID 05/16/21 06/24/21 Unknown History 62.5 mcg-vilant 25 mcg inhalat.powder (Trelegy Ellipta) oxycodone 10 mg tablet 10 mg PO BID PRN 05/16/21 06/24/21 Unknown History solifenacin 10 mg tablet (Vesicare) 10 mg PO DAILY 05/16/21 06/24/21 Unknown History baclofen 10 mg tablet 10 mg PO TID PRN #90 tab 06/07/21 06/24/21 Unknown Rx rizatriptan 10 mg tablet (Maxalt) See Rx Instructions PO .COMPLEX #9 06/07/21 06/24/21 Unknown Rx tab Allergies Allergy/AdvReac Type Severity Reaction Status Date / Time banana Allergy Severe headache Verified 06/26/21 06:52 shellfish derived Allergy Intermediate nausea, Verified 06/26/21 06:52 headache nut - unspecified Allergy Unknown unknown Verified 06/26/21 06:52 reaction PFSH Anesthesia Medical History Bereavement, uncomplicated Bipolar II disorder Chronic back pain Chronic post-traumatic stress disorder (PTSD) COPD (chronic obstructive pulmonary disease) Fibromyalgia HSIL (high grade squamous intraepithelial lesion) on Pap smear of cervix Insomnia Migraine headache Psychiatric care Sleep apnea Stress incontinence Surgical History H/O knee surgery bilaterally History of carpal tunnel surgery of right wrist History of delivery Recent surgical procedure on lower extremity left leg- 2015 S/P hysterectomy Total vaginal hysterectomy with left salpingo-oophorectomy performed on 05/04/2019 Family History Mother Hypertension Heart disease Stroke Hyperlipidemia Father Heart disease Social History Smoking and tobacco status: former smoker (Stopped last year) Second hand smoke exposure: Yes Alcohol intake: current Alcohol intake frequency: holidays/special occasions only Alcohol type: hard liquor Desire information about alcohol rehabilitation?: No Adopted: No Caregiver/support person: No Lives independently: Yes Household members: none Housing: Apartment Marital status: Single Number of children: 2 Number of grandchildren: 0 Highest education level completed: Associate Degree: Occupational, Technical, Vocational Program service: No Current occupational status: disabled Current occupational exposures/hazards: No Pets and animals: No History of recent travel: No Leisure activites: art, games and reading Sexually active: No Current gender identity: Female Barbara/Hindu: Sikh Special barbara needs: No Agree to transfusion: Yes Financial difficulty paying for basics: Somewhat Hard Additional social history: well balanced diet Female Reproductive History Para: 2 Spontaneous abortions: No Data Anesthesia Cardiac Studies: No Data to Display
[2021-06-26 06:55] VITALS: BP 120/97; PULSE 83; RESP 18; TEMP 36.1; O2SAT 93
[2021-06-26] MEDS: sodium chloride 0.9% 1,000 ML 30 ML IV (07:05)
--- NOTE | 2021-06-26 07:53 | P.HP_ITS ---
Same Day Surgery H&P Indication for Procedure/HPI DATE OF PROCEDURE: June 26, 2021 CHIEF COMPLAINT/INDICATIONFOR SURGICAL PROCEDURE: colonoscopy PREOP DIAGNOSIS: diagnostic PLANNED PROCEDURE: Operation Date: 06/26/21 08:00 Proposed Procedures p Colonoscopy 54877 Z12.11(Not Applicable) - Héctor Perkins MD Medications/Allergies* Home Medications Medication Instructions Recorded Confirmed Type montelukast 10 mg tablet 10 mg PO BEDTIME 04/13/19 06/26/21 History (Singulair) olopatadine 0.2 % eye drops 1 drp OPHTHALMIC (EYE) PRN PRN 04/13/19 06/26/21 History (Pataday) loratadine 10 mg tablet (Claritin) 10 mg PO DAILY 03/08/21 06/26/21 History bupropion HCl 300 mg 24 hr tablet, 300 mg PO DAILY 05/16/21 06/26/21 History extended release (Wellbutrin XL) duloxetine 30 mg capsule,delayed 30 mg PO DAILY 05/16/21 06/26/21 History release (Cymbalta) fluticasone fur. 100 mcg-umeclid 1 inh INHALATION BID 05/16/21 06/26/21 History 62.5 mcg-vilant 25 mcg inhalat.powder (Trelegy Ellipta) oxycodone 10 mg tablet 10 mg PO BID PRN 05/16/21 06/26/21 History solifenacin 10 mg tablet (Vesicare) 10 mg PO DAILY 05/16/21 06/26/21 History Allergies/Adverse Reactions Allergy/AdvReac Type Severity Reaction Status Date / Time banana Allergy Severe headache Verified 06/26/21 06:52 shellfish derived Allergy Intermediate nausea, Verified 06/26/21 06:52 headache nut - unspecified Allergy Unknown unknown Verified 06/26/21 06:52 reaction Current Medications: Generic Name Dose Route Start Last Admin Trade Name Freq PRN Reason Stop Dose Admin Sodium Chloride 1,000 mls @ 30 mls/hr 06/26/21 06:45 06/26/21 07:05 Sodium Chloride 0.9% IV 06/27/21 06:44 30 mls/hr .Q24H KHADIJAH Administration Pertinent History/Comorbid Conditions* Medical History (Updated 03/15/21 @ 13:20 by Shanon Cabrera DO) Bereavement, uncomplicated Bipolar II disorder Chronic back pain Chronic post-traumatic stress disorder (PTSD) COPD (chronic obstructive pulmonary disease) Fibromyalgia HSIL (high grade squamous intraepithelial lesion) on Pap smear of cervix Insomnia Migraine headache Psychiatric care Sleep apnea Stress incontinence Surgical History (Updated 04/09/21 @ 12:03 by Héctor Perkins MD) H/O knee surgery bilaterally History of carpal tunnel surgery of right wrist History of delivery Recent surgical procedure on lower extremity left leg- 2015 S/P hysterectomy Total vaginal hysterectomy with left salpingo-oophorectomy performed on 05/04/2019 Family History (Updated 04/05/19 @ 14:31 by Cate Maddox RN) Heart disease Mother Father Hyperlipidemia Mother Hypertension Mother Stroke Mother Social History Smoking and tobacco status: former smoker (Stopped last year) Second hand smoke exposure: Yes Alcohol intake: current Alcohol intake frequency: holidays/special occasions only Alcohol type: hard liquor Desire information about alcohol rehabilitation?: No Adopted: No Caregiver/support person: No Lives independently: Yes Household members: none Housing: Apartment Marital status: Single Number of children: 2 Number of grandchildren: 0 Highest education level completed: Associate Degree: Occupational, Technical, Vocational Program service: No Current occupational status: disabled Current occupational exposures/hazards: No Pets and animals: No History of recent travel: No Leisure activites: art, games and reading Sexually active: No Current gender identity: Female Barbara/Roman Catholic: Gnosticism Special barbara needs: No Agree to transfusion: Yes Financial difficulty paying for basics: Somewhat Hard Additional social history: well balanced diet Pertinent Exam Findings alert, oriented x 3 and regular rate & rhythm Recommendations Surgery/Procedure today Coding Level of Care Code Acute Joint Terminal Attack Controller for Kerry Montes De Oca
[2021-06-26 08:29] VITALS: BP 160/105; PULSE 92; RESP 12; TEMP 36.6; O2SAT 90
[2021-06-26 08:50] VITALS: BP 116/82; PULSE 86; RESP 15; TEMP 36.9; O2SAT 94
--- NOTE | 2021-06-26 09:23 | ANE.PACU2 ---
Inpatient post-anesthesia follow up: Airway intact: Yes Vital signs: Temperature 98.5 F Pulse Rate 86 Respiratory Rate 15 Blood Pressure 116/82 Pulse Oximetry 94 Oxygen Delivery Me thod Room Air Oxygen Flow Rate Fraction of Inspir ed Oxygen Hydration adequate: Yes Nausea and vomiting: No Pain level: 1 Mental status: Baseline
== END 2021-06-26 08:57 | disposition home or self-care (01) ==
PROVIDERS: PCP Family Medicine; Visit Provider Surgery
PROC: 0DJD8ZZ Inspection of Lower Intestinal Tract, Via Natural or Artificial Opening Endoscopic (ICD-10-PCS; CPT 45378; principal; 2021-06-26 08:00)
DX: Z12.11 Encounter for screening for malignant neoplasm of colon (principal); D12.2 Benign neoplasm of ascending colon; D12.5 Benign neoplasm of sigmoid colon; D12.3 Benign neoplasm of transverse colon; K57.30 Diverticulosis of large intestine without perforation or abscess without bleeding; J44.9 Chronic obstructive pulmonary disease, unspecified; M79.7 Fibromyalgia; G47.30 Sleep apnea, unspecified; Z87.891 Personal history of nicotine dependence; K21.9 Gastro-esophageal reflux disease without esophagitis; E66.01 Morbid (severe) obesity due to excess calories; Z68.41 Body mass index [BMI] 40.0-44.9, adult
CPT/HCPCS: 45380; 45385; 88305; J2704; J3490; J7030

== ENCOUNTER → 2021-06-27 07:59 | Outpatient (BNVA) | payer MEDICARE, MEDICAID, SELFPAY ==
[2021-06-26 13:35] VITALS: BP 136/80; BMI 42.2
== END ==
PROVIDERS: PCP Family Medicine; Visit Provider Nurse Practitioner Psychiatric/Mental Health
DX: F31.81 Bipolar II disorder (principal); Z63.4 Disappearance and death of family member; F43.12 Post-traumatic stress disorder, chronic
CPT/HCPCS: 99214

== ENCOUNTER 2021-06-28 14:15 | Outpatient (CLI) | payer MEDICARE, MEDICAID, SELFPAY ==
[2021-06-26 13:35] VITALS: BP 136/80; BMI 42.2
--- NOTE | 2021-06-28 14:21 | MM_ITS ---
WS: [id number] BILATERAL SCREENING 3D TOMOSYNTHESIS DIGITAL MAMMOGRAM WITH CAD HISTORY: SCREENING COMPARISON: 01/14/2019 Bilateral CC and MLO views submitted. Computer aided detection analyzed. Breast composition: There are scattered areas of fibroglandular density. No suspicious masses, microc alcifications or architectural distortion. Benign scattered calcifications and lucent centered calcif ications within each breast. MM/[place] [id number] IMPRESSION: BI-RADS: 2-Benign FOLLOW UP: 1 Year Follow-up
== END 2021-06-28 14:16 | disposition home or self-care (01) ==
LOC: RADSHAW 14:17
PROVIDERS: PCP Family Medicine; Visit Provider Family Medicine
DX: Z12.31 Encounter for screening mammogram for malignant neoplasm of breast (principal)
CPT/HCPCS: 77063; 77067

== ENCOUNTER → 2021-07-08 09:00 | Outpatient (BNVA) | payer MEDICARE, MEDICAID, SELFPAY ==
[2021-06-26 13:35] VITALS: BP 136/80; BMI 42.2
== END ==
PROVIDERS: PCP Family Medicine; Visit Provider Surgery
DX: Z12.11 Encounter for screening for malignant neoplasm of colon (principal)
CPT/HCPCS: 99212

== ENCOUNTER → 2021-09-19 06:23 | Outpatient (BNVA) | payer MEDICARE, MEDICAID, SELFPAY ==
[2021-06-26 13:35] VITALS: BP 136/80; BMI 42.2
== END ==
PROVIDERS: PCP Family Medicine; Visit Provider Nurse Practitioner Psychiatric/Mental Health
DX: F31.81 Bipolar II disorder (principal); F43.12 Post-traumatic stress disorder, chronic; Z63.4 Disappearance and death of family member
CPT/HCPCS: 99214

== ENCOUNTER → 2021-10-03 14:15 | Outpatient (BNVA) | payer MEDICARE, MEDICAID, SELFPAY ==
[2021-06-26 13:35] VITALS: BP 136/80; BMI 42.2
== END ==
PROVIDERS: PCP Family Medicine; Visit Provider Specialist
DX: G43.001 Migraine without aura, not intractable, with status migrainosus (principal)
CPT/HCPCS: 64615; 99213

== ENCOUNTER 2021-11-28 06:05 | Outpatient (CLI) | payer MEDICARE, MEDICAID, SELFPAY ==
[2021-06-26 13:35] VITALS: BP 136/80; BMI 42.2
--- NOTE | 2021-11-28 06:30 | US_ITS ---
WS: [id number] RIGHT UPPER QUADRANT ULTRASOUND HISTORY: ruq pain COMPARISON: 10/06/2012 Liver: 20.3 cm in length. Moderately enlarged liver. Marked attenuation and coarse echotexture throug hout the liver. The entire liver cannot be visualized due to the hepatic steatosis and fibrosis. No b ile duct dilatation. Portal Vein: Normal hepatopetal flow with monophasic waveform. Gallbladder: Normally distended gallbladder with no stones or wall thickening. CBD: 0.4 cm Pancreas: Not visualized well. The body is negative. Head and tail are not seen. Right kidney: 10.6 cm in length. Normal size and echogenicity. No hydronephrosis or mass. Aorta and IVC: Unremarkable abdominal aorta and IVC. No ascites. US/US gall bladder [id number] IMPRESSION: 1. Moderately enlarged liver with severe hepatic steatosis. The entire liver i s not well visualized due to the marked attenuation. 2. Negative gallbladder.
[2021-11-28 07:49] LABS: Chol HDL Ratio 4.13 mg/dL (0.0-4.40); Cholesterol 194 mg/dL (0-200); HDL Cholesterol 47 mg/dL (60-100); LDL Cholesterol Calculated 113 mg/dL (50-129); Triglycerides 172 mg/dL (0-150)
[2021-11-28 11:27] LABS: Estmated Average Glucose 126
== END 2021-11-28 06:06 | disposition home or self-care (01) ==
PROVIDERS: Absent Provider Nurse Practitioner Psychiatric/Mental Health; PCP Family Medicine; Visit Provider Family Medicine
DX: R10.11 Right upper quadrant pain (principal); Z79.899 Other long term (current) drug therapy
CPT/HCPCS: 36415; 76705; 80061; 83036

== ENCOUNTER → 2021-12-25 11:09 | Outpatient (BNVA) | payer MEDICARE, MEDICAID, SELFPAY ==
[2021-06-26 13:35] VITALS: BP 136/80; BMI 42.2
== END ==
PROVIDERS: PCP Family Medicine; Visit Provider Surgery
DX: R10.11 Right upper quadrant pain (principal); K29.50 Unspecified chronic gastritis without bleeding
CPT/HCPCS: 99203

== ENCOUNTER 2021-12-26 09:05 | Day surgery (SDC) | payer MEDICARE, MEDICAID, SELFPAY ==
[2021-06-26 13:35] VITALS: BP 136/80; BMI 42.2
[2021-12-25 13:58] VITALS: BMI 42.6
[2021-12-26 10:34] VITALS: BP 130/93; PULSE 91; RESP 18; TEMP 36.4; O2SAT 94
--- NOTE | 2021-12-26 10:37 | PC.NURSE ---
PATIENT C/O BACK PAIN AND BILAT KNEE PAIN THAT HURST ALL THE TIME. STATES SHE RECENTLY BROKE HER LEFT PINKY TOE
--- NOTE | 2021-12-26 10:39 | PC.NURSE ---
PATIENT HAS MULTIPLE PIERCINGS. PATIENT REMOVED THE ONES SHE COULD AND PLACED IN CONTAINER AND PLACED IN HER PURSE.
[2021-12-26] MEDS: sodium chloride 0.9% 1,000 ML 30 ML IV (11:02)
--- NOTE | 2021-12-26 11:35 | ANES.PREANE2 ---
Pre-Anesthetic Assessment Height/Weight: Height 1.57 m Weight 105.687 kg Temp Pulse Resp BP Pulse Ox O2 Del Method 97.6 F 91 18 130/93 94 12/26/21 10:34 12/26/21 10:34 12/26/21 10:34 12/26/21 10:34 12/26/21 10:34 12/26/21 10:34 Preop Diagnosis: diagnostic Operation Date: 12/26/21 10:45 Proposed Procedures p EGD 61728,K29.70(Not Applicable) - Martínez Bateman MD Familial anesthetic complications: none Was Beta Samson taken within 24 hours: N/A Was Clonidine taken within 24 hours: N/A Last intake: Intake Last Liquid Date 12/25/21 Last Liquid Time 23:30 Last Solid Date 12/25/21 Last Solid Time 23:30 Social Tobacco and No alcohol Exam alert, oriented x 3 and regular rate & rhythm diminished BBS Airway Submandibular: within normal limits Cervical ROM: Other (Limited d/t to pain ) Mallampati: Class II Dentition: chipped History/ROS No significant complaints Pulmonary Chronic Obstructive Pulmonary Disease and Sleep Apnea CV/HEM None reported None reported Hepatic None reported Hepatic steatosis GI Gastroesophageal Reflux Disease (Well controlled ) Metabolic None reported Musc/skel Fibromyalgia and Lower Back Pain Neuropsych Bipolar and Headache Anesthetic Plan ASA status: 1 Anesthesia: Anesthesia Evaluation, General and MAC Other: I discussed with the patient risks, goals, and benefits of MAC and general anesthesia. We discussed spectrum of MAC anesthesia including conversion to general as well as possibility of recall of intraoperative stimuli including discomfort/pain. Patient agrees to proceed with MAC. Risk of > 500 ml blood loss (7ml/kg in children): No Medications/Allergies Home Medications Medication Instructions Recorded Confirmed Last Taken Type montelukast 10 mg tablet 10 mg PO BEDTIME 04/13/19 12/26/21 12/25/21 History (Singulair) olopatadine 0.2 % eye drops 1 drp ophthalmic (eye) PRN PRN Dry 04/13/19 12/26/21 12/19/21 History (Pataday) Eyes dexlansoprazole 60 mg 60 mg PO DAILY #30 caps 04/17/20 12/26/21 12/26/21 Rx capsule,biphase delayed release (Dexilant) mupirocin 2 % topical ointment 1 applic topical TID 7 days #22 06/25/20 12/26/21 12/18/21 Rx grams loratadine 10 mg tablet (Claritin) 10 mg PO DAILY 03/08/21 12/26/21 12/25/21 History albuterol sulfate 90 mcg/actuation 2 puff inhalation QID PRN Cough 08/22/21 12/26/21 12/24/21 Rx aerosol inhaler (ProAir HFA) #8.5 grams solifenacin 10 mg tablet (Vesicare) 10 mg PO DAILY #90 tabs 08/22/21 12/26/21 12/25/21 Rx miscellaneous medical supply See Rx Instructions .Route 10/02/21 12/26/21 Unknown Rx .COMPLEX 30 days #1 ea aripiprazole 15 mg tablet (Abilify) 15 mg PO BEDTIME #90 tabs 11/14/21 12/26/21 12/25/21 Rx bupropion HCl 150 mg 24 hr tablet, 150 mg PO .morning #90 tabs 11/14/21 12/26/21 12/25/21 Rx extended release bupropion HCl 300 mg 24 hr tablet, 300 mg PO .morning #90 tabs 11/14/21 12/26/21 12/25/21 Rx extended release duloxetine 30 mg capsule,delayed 30 mg PO .morning #90 caps 11/14/21 12/26/21 12/25/21 Rx release (Cymbalta) duloxetine 60 mg capsule,delayed 60 mg PO .morning #90 caps 11/14/21 12/26/21 12/25/21 Rx release (Cymbalta) hydroxyzine pamoate 25 mg capsule 25 mg PO BID PRN anxiety #60 caps 11/14/21 12/26/21 12/25/21 Rx (Vistaril) trazodone 150 mg tablet 150 mg PO .at bedtime #90 tabs 11/14/21 12/26/21 12/25/21 Rx alprazolam 1 mg tablet (Xanax) 1 mg PO TID PRN Anxiety #90 tabs 11/25/21 12/26/21 12/26/21 Rx baclofen 10 mg tablet See Rx Instructions .Route 12/12/21 12/26/21 12/26/21 Rx .COMPLEX #90 tabs fluticasone fur. 100 mcg-umeclid 1 inh inhalation BID #60 ea 12/12/21 12/26/21 12/25/21 Rx 62.5 mcg-vilant 25 mcg inhalat.powder (Trelegy Ellipta) sucralfate 1 gram tablet (Carafate) 1 g PO QPM 12/25/21 12/26/21 12/25/21 History Allergies Allergy/AdvReac Type Severity Reaction Status Date / Time banana Allergy Severe headache Verified 12/26/21 12:02 shellfish derived Allergy Intermediate nausea, Verified 12/26/21 12:02 headache nut - unspecified Allergy Unknown unknown Verified 12/26/21 12:02 reaction Current Medications Generic Name Dose Route Start Last Admin Trade Name Freq PRN Reason Stop Dose Admin Sodium Chloride 1,000 mls @ 30 mls/hr 12/26/21 09:45 12/26/21 11:02 Sodium Chloride 0.9% IV 12/27/21 09:44 30 mls/hr .Q24H KHADIJAH Administration PFSH Anesthesia Medical History Bereavement, uncomplicated Bipolar II disorder Chronic back pain Chronic post-traumatic stress disorder (PTSD) COPD (chronic obstructive pulmonary disease) Fibromyalgia HSIL (high grade squamous intraepithelial lesion) on Pap smear of cervix Insomnia Migraine headache Nicotine dependence, cigarettes, uncomplicated Psychiatric care Sleep apnea Stress incontinence Surgical History H/O knee surgery bilaterally History of carpal tunnel surgery of right wrist History of delivery Recent surgical procedure on lower extremity left leg- 2016 S/P hysterectomy Total vaginal hysterectomy with left salpingo-oophorectomy performed on 05/04/2019 Family History Mother Hypertension Heart disease Stroke Hyperlipidemia Father Heart disease Social History Smoking and tobacco status: current every day smoker Second hand smoke exposure: Yes Alcohol intake: current Alcohol intake frequency: holidays/special occasions only Alcohol type: hard liquor Desire information about alcohol rehabilitation?: No Adopted: No Caregiver/support person: No Lives independently: Yes Household members: none Housing: Apartment Marital status: Single Number of children: 2 Number of grandchildren: 0 Highest education level completed: Associate Degree: Occupational, Technical, Vocational Program service: No Current occupational status: disabled Current occupational exposures/hazards: No Pets and animals: No History of recent travel: No Leisure activites: art, games and reading Sexually active: No Current gender identity: Female Barbara/Samaritan: Sabianism Special barbara needs: No Agree to transfusion: Yes Financial difficulty paying for basics: Somewhat Hard Additional social history: well balanced diet Female Reproductive History Para: 2 Spontaneous abortions: No Date of menopause: 04/27/18 Data Anesthesia Cardiac Studies: No Data to Display
--- NOTE | 2021-12-26 12:06 | W.PM.OPSUD ---
Surgery/Procedure H&P Update DATE OF PROCEDURE: December 26, 2021 DATE H&P PERFORMED: 12/25/21 H&P UPDATE INFORMATION: I have reviewed H&P completed within last 30 days, I have examined patient prior to procedure and No changes to prior documentation PREOP DIAGNOSIS: diagnostic PRIMARY INDICATION FOR PROCEDURE: The same PLANNED PROCEDURE: Operation Date: 12/26/21 10:45 Proposed Procedures p EGD 23754,K29.70(Not Applicable) - Martínez Bateman MD
[2021-12-26 12:17] VITALS: BP 133/69; PULSE 88; RESP 12; TEMP 36.6; O2SAT 98
[2021-12-26 12:35] VITALS: BP 112/92; PULSE 95; RESP 16; O2SAT 96
--- NOTE | 2021-12-26 14:43 | ANE.PACU2 ---
Inpatient post-anesthesia follow up: Airway intact: Yes Vital signs: Temperature 97.8 F Pulse Rate 95 Respiratory Rate 16 Blood Pressure 112/92 Pulse Oximetry 96 Oxygen Delivery Me thod Room Air Oxygen Flow Rate 7 Fraction of Inspir ed Oxygen Hydration adequate: Yes Nausea and vomiting: No Pain level: 1 Mental status: Baseline
== END 2021-12-26 12:50 | disposition home or self-care (01) ==
PROVIDERS: PCP Family Medicine; Visit Provider Surgery
PROC: 0DJ08ZZ Inspection of Upper Intestinal Tract, Via Natural or Artificial Opening Endoscopic (ICD-10-PCS; CPT 43235; principal; 2021-12-26 10:45)
DX: K29.70 Gastritis, unspecified, without bleeding (principal); K21.00 Gastro-esophageal reflux disease with esophagitis, without bleeding; J44.9 Chronic obstructive pulmonary disease, unspecified; G47.30 Sleep apnea, unspecified; K21.9 Gastro-esophageal reflux disease without esophagitis; F17.210 Nicotine dependence, cigarettes, uncomplicated; M79.7 Fibromyalgia
CPT/HCPCS: 43239; 88305; J2704; J7030

== ENCOUNTER 2022-01-17 09:37 | Outpatient (CLI) | payer MEDICARE, MEDICAID, SELFPAY ==
[2021-06-26 13:35] VITALS: BP 136/80; BMI 42.2
--- NOTE | 2022-01-17 10:00 | NM_ITS ---
WS: [id number] NUCLEAR MEDICINE HIDA SCAN WITH GALLBLADDER EJECTION FRACTION HISTORY: gastritis COMPARISON: Gallbladder ultrasound 11/28/2021 TECHNIQUE: The patient was intravenously injected with 7.8 mCi of TC99m Mebrofenin. Immediate imaging over the right upper quadrant was followed by 5 minute image and additional images for a total of 60 minutes. Normal uptake of radiotracer throughout the liver. Liver appears slightly enlarged. Activity identified in the gallbladder at 20 minutes and well distended by 60 minutes. Activity in the proximal small bowel was seen by 15 minutes. Good washout of the radiotracer from the liver by 60 minutes. The patient then drank 8 ounces of Ensure Plus. Ejection fraction at 60 minutes was 77%. Normal GB ej ection fraction is 35-75%. Post fatty meal symptoms: None. NM/NM hepatobiliary w phar* [id number] IMPRESSION: 1. Normal HIDA scan. 2. Normal gallbladder ejection fraction.
== END 2022-01-17 09:38 | disposition home or self-care (01) ==
LOC: RAD 09:41
PROVIDERS: PCP Family Medicine; Visit Provider Surgery
DX: K29.70 Gastritis, unspecified, without bleeding (principal)
CPT/HCPCS: 78227; A9537

== ENCOUNTER → 2022-01-30 13:21 | Outpatient (BNVA) | payer MEDICARE, MEDICAID, SELFPAY ==
[2021-06-26 13:35] VITALS: BP 136/80; BMI 42.2
== END ==
PROVIDERS: PCP Family Medicine; Visit Provider Surgery
DX: Z09 Encounter for follow-up examination after completed treatment for conditions other than malignant neoplasm (principal); K76.0 Fatty (change of) liver, not elsewhere classified
CPT/HCPCS: 99213

== ENCOUNTER → 2022-04-03 13:30 | Outpatient (BNVA) | payer MEDICARE, MEDICAID, SELFPAY ==
[2021-06-26 13:35] VITALS: BP 136/80; BMI 42.2
== END ==
PROVIDERS: PCP Family Medicine; Visit Provider Family Medicine
DX: R53.83 Other fatigue (principal); K76.0 Fatty (change of) liver, not elsewhere classified; E66.9 Obesity, unspecified; F17.210 Nicotine dependence, cigarettes, uncomplicated
CPT/HCPCS: 80053; 84443; 85025

== ENCOUNTER 2022-08-20 11:09 | Outpatient (RCR) | payer MEDICARE, MEDICAID, SELFPAY ==
[2021-06-26 13:35] VITALS: BP 136/80; BMI 42.2
== END 2022-09-03 23:59 | disposition home or self-care (01) ==
LOC: SPT 11:09
PROVIDERS: PCP Family Medicine; Visit Provider Family Medicine
DX: M54.41 Lumbago with sciatica, right side (principal); M54.42 Lumbago with sciatica, left side; G89.29 Other chronic pain
CPT/HCPCS: 97161

== ENCOUNTER 2022-09-04 06:00 | Outpatient (RCR) | payer MEDICARE, MEDICAID, SELFPAY ==
[2021-06-26 13:35] VITALS: BP 136/80; BMI 42.2
== END 2022-10-03 23:59 | disposition home or self-care (01) ==
LOC: SPT 06:00
PROVIDERS: PCP Family Medicine; Visit Provider Family Medicine
DX: M54.41 Lumbago with sciatica, right side (principal); M54.42 Lumbago with sciatica, left side; G89.29 Other chronic pain
CPT/HCPCS: 97110

== ENCOUNTER → 2022-10-09 09:34 | Outpatient (BNVA) | payer MEDICARE, MEDICAID, SELFPAY ==
[2021-06-26 13:35] VITALS: BP 136/80; BMI 42.2
== END ==
PROVIDERS: PCP Family Medicine; Visit Provider Nurse Practitioner Psychiatric/Mental Health
DX: Z79.899 Other long term (current) drug therapy (principal)
CPT/HCPCS: 80053; 80061; 83036

== ENCOUNTER 2023-01-23 10:40 | Outpatient (CLI) | payer MEDICARE, MEDICAID, SELFPAY ==
[2021-06-26 13:35] VITALS: BP 136/80; BMI 42.2
--- NOTE | 2023-01-23 10:47 | XRR_ITS ---
PROCEDURE INFORMATION: Exam: XR Left Hip Exam date and time: 01/23/2023 10:50 AM Age: 57 years old Clinical indication: Patient HX: Left hip pain when weight bearing x 6 mo; Left leg weakness TECHNIQUE: Imaging protocol: Radiologic exam of the left hip. Views: 2 or 3 views hip with pelvis when performed. COMPARISON: NM hepatobiliary w phar* [id number] 01/17/2022 10:00 AM FINDINGS: Bones/joints: Unremarkable. No fracture, malalignment or deformity detected. No significant degenerative joint changes. Soft tissues: Unremarkable. XR/XR hip LT 2-3V wo/w pel* [id number] IMPRESSION: No acute bony abnomalities.
== END 2023-01-23 10:41 | disposition home or self-care (01) ==
LOC: RAD 10:43
PROVIDERS: PCP Family Medicine; Visit Provider Family Medicine
DX: M25.552 Pain in left hip (principal); G89.29 Other chronic pain; R53.1 Weakness
CPT/HCPCS: 73502

== ENCOUNTER 2023-02-11 10:50 | Outpatient (CLI) | payer MEDICARE, MEDICAID, SELFPAY ==
[2021-06-26 13:35] VITALS: BP 136/80; BMI 42.2
--- NOTE | 2023-02-11 10:55 | MM_ITS ---
WS: [email or web address] BILATERAL SCREENING DIGITAL TOMOSYNTHESIS MAMMOGRAM WITH CAD HISTORY: SCREEN COMPARISON: 06/28/2021, 01/14/2019 Bilateral CC and MLO views with tomosynthesis and synthetic mammography submitted. Computer aided det ection analyzed. Breast composition: There are scattered areas of fibroglandular density. No suspicious masses, microc alcifications or architectural distortion. Benign calcifications in each breast. IMPRESSION: MM/[place] [id number] BI-RADS: 2-Benign FOLLOW UP: 1 Year Follow-up
== END 2023-02-11 10:51 | disposition home or self-care (01) ==
LOC: RAD 10:50
PROVIDERS: PCP Family Medicine; Visit Provider Family Medicine
DX: Z12.31 Encounter for screening mammogram for malignant neoplasm of breast (principal)
CPT/HCPCS: 77063; 77067

== ENCOUNTER 2023-02-19 12:16 | Outpatient (CLI) | payer MEDICARE, MEDICAID, SELFPAY ==
[2021-06-26 13:35] VITALS: BP 136/80; BMI 42.2
--- NOTE | 2023-02-19 12:30 | CT_ITS ---
WS: [email or web address] LDCT LUNG CANCER SCREENING HISTORY: screening TECHNIQUE: Axial imaging performed from the apices to 1 cm below the costophrenic angles. Coronal and sagittal reformats are submitted with axial MIP series. All CT scans at [facility] use at least one of these dose optimization techniques: automated exposure control; mA and/or kV adjustment per patient size (includes targeted exams where dose is matched to clinical indication); or iterativ e reconstruction. DLP: 115.21 mGy.cm DIvol: Mean CTDIvol: 2.80 (mGy) COMPARISON: None available. Diagnostic quality: Satisfactory Lungs: Hyperinflated lungs. Chronic changes of emphysema. Peripheral interstitial thickening is noted in the upper and lower lung vora. No bronchiectasis. There is bronchial wall thickening but no mas s or nodules are appreciated. No pneumonia. No endobronchial lesions. Heart: Normal size heart with no pericardial effusion.. Mild coronary artery atherosclerosis. Other findings: No mediastinal or hilar adenopathy. Atherosclerosis aorta. No adrenal mass. Scarring and calcifications upper pole LEFT kidney. IMPRESSION: CT/CT lung screening [id number] LUNG-RADS: 1-Negative FOLLOW UP: 12 Month: Continue annual screening with LDCT OTHER FINDINGS (S MODIFIER): None.
--- NOTE | 2023-02-19 13:00 | XR_ITS ---
WS: [email or web address] DEXA (DUAL ENERGY X-RAY ABSORPTIOMETRY) Bone mineral density was performed using a [employer] (mytaxi) machine. HISTORY: postmenopausal COMPARISON: None available. Left forearm BMD: 0.699 g/cm2. T score: -2.0 Z score: -1.4 Total hip BMD: Left: 0.851 g/cm2. T score: -1.2 Z score: -1.1 Right: 0.874 g/cm2. T score: -1.1 Z score: -0.9 10 year probability of a major osteoporotic fracture is 10.0%. IMPRESSION: OSTEOPENIA based upon the WHO classification for females.
== END 2023-02-19 12:17 | disposition home or self-care (01) ==
LOC: RAD 12:16
PROVIDERS: PCP Family Medicine; Visit Provider Family Medicine
DX: Z12.2 Encounter for screening for malignant neoplasm of respiratory organs (principal); Z87.891 Personal history of nicotine dependence; Z78.0 Asymptomatic menopausal state; M85.80 Other specified disorders of bone density and structure, unspecified site
CPT/HCPCS: 71271; 77080

== ENCOUNTER → 2023-03-06 09:00 | Outpatient (BNVA) | payer MEDICARE, MEDICAID, SELFPAY ==
[2021-06-26 13:35] VITALS: BP 136/80; BMI 42.2
== END ==
PROVIDERS: PCP Family Medicine; Referring Provider Family Medicine; Visit Provider Student in an Organized Health Care Education/Training Program
DX: M54.50 Low back pain, unspecified; G89.29 Other chronic pain; M25.552 Pain in left hip
CPT/HCPCS: 99203

== ENCOUNTER → 2023-03-26 13:06 | Outpatient (BNVA) | payer MEDICARE, MEDICAID, SELFPAY ==
[2021-06-26 13:35] VITALS: BP 136/80; BMI 42.2
== END ==
PROVIDERS: PCP Family Medicine; Visit Provider Orthopaedic Surgery
DX: M54.42 Lumbago with sciatica, left side (principal); M54.41 Lumbago with sciatica, right side; G89.29 Other chronic pain
CPT/HCPCS: 72100; 99204

== ENCOUNTER 2023-05-11 10:36 | Outpatient (CLI) | payer MEDICARE, MEDICAID, SELFPAY ==
[2021-06-26 13:35] VITALS: BP 136/80; BMI 42.2
--- NOTE | 2023-05-11 11:00 | MR_ITS ---
WS: [email or web address] MRI LUMBAR SPINE NONCONTRAST HISTORY: Pain COMPARISON: 02/16/2012 TECHNIQUE: Sagittal and axial multisequence imaging is submitted. Quality is limited by body habitus and slight motion artifact on several of the sequences. Significant progression of degenerative disc disease at L5-S1 since the prior study. 2 mm anterolisth esis of L5. 2 mm retrolisthesis of L4. Fatty marrow replacement in L5 and S1. No fractures. Conus terminates normally at T12-L1. L1-L2: Mild disc bulging. No stenosis. L2-L3: Mild annular disc bulging with a shallow LEFT foraminal disc protrusion. Mild ligamentum flavu m and facet arthritis. Very slight subarticular recess encroachment. L3-L4: Mild annular disc bulging and osteophytic ridging. Mild ligamentum flavum and facet arthritis. Very mild central and bilateral subarticular recess encroachment. Mild progression since the prior s tudy of central stenosis. L4-L5: Mild annular disc bulging with osteophytic ridging and a shallow central disc protrusion. Cent ral disc protrusion was also described on the prior study. Increase in ligamentum flavum and facet ar thritis. Moderate to severe central, bilateral subarticular recess and mild foraminal stenosis. L5-S1: Mild osteophytic ridging and facet arthritis. Mild central, bilateral subarticular recess and moderate foraminal stenosis. Stenosis similar to the prior study. Paravertebral soft tissues are unremarkable. IMPRESSION: 1. Progression of degenerative disc disease at L5-S1 since the prior study. 2. 2 mm anterolisthesis of L5. 3. L4-5: Moderate to severe central, bilateral subarticular recess and mild foraminal stenosis. 4. L5-S1: Mild central and bilateral subarticular recess and moderate foraminal stenosis. Similar to the prior examination. 5. L3-4: Very mild central and bilateral subarticular recess stenosis.
== END 2023-05-11 10:37 | disposition home or self-care (01) ==
LOC: RAD 10:37
PROVIDERS: PCP Family Medicine; Visit Provider Orthopaedic Surgery
DX: M51.17 Intervertebral disc disorders with radiculopathy, lumbosacral region (principal); M48.07 Spinal stenosis, lumbosacral region
CPT/HCPCS: 72148

== ENCOUNTER → 2023-06-18 13:27 | Outpatient (BNVA) | payer MEDICARE, MEDICAID, SELFPAY ==
[2021-06-26 13:35] VITALS: BP 136/80; BMI 42.2
== END ==
PROVIDERS: PCP Family Medicine; Visit Provider Orthopaedic Surgery
DX: M48.062 Spinal stenosis, lumbar region with neurogenic claudication
CPT/HCPCS: 80053; 81001; 85025; 99214

== ENCOUNTER → 2023-06-22 12:06 | Outpatient (BNVA) | payer MEDICARE, MEDICAID, SELFPAY ==
[2021-06-26 13:35] VITALS: BP 136/80; BMI 42.2
== END ==
PROVIDERS: PCP Family Medicine; Visit Provider Family Medicine
DX: Z01.89 Encounter for other specified special examinations (principal)
CPT/HCPCS: 87086

== ENCOUNTER 2023-07-03 11:07 | Day surgery (SDC) | payer MEDICARE, MEDICAID, SELFPAY ==
[2021-06-26 13:35] VITALS: BP 136/80; BMI 42.2
[2023-07-03] VITALS (11 sets, daily range): BP systolic 100–133; BP diastolic 59–87; PULSE 44–93; RESP 15–18; TEMP 36.1–36.5; O2SAT 90–95; BMI 37.5
--- NOTE | 2023-07-03 08:00 | XR_ITS ---
WS: [id number] Examination: XR lumbar spine 2-3V* [id number] Reason for Exam: SURGERY Date: July 03, 2023 Comparison: None. Findings: 2 intraoperative images have been obtained. Fluoroscopy 0.07 minutes. The dap is 14.8 mGy. Images demonstrate posterior surgical change at L3-4 and L4-5 Impression: Please see intraoperative note for full explanation of the findings and the procedure.
--- NOTE | 2023-07-03 11:36 | P.ANESASSM_ITS ---
Pre-Anesthetic Assessment Height/Weight: Height 1.65 m Temp Pulse Resp BP Pulse Ox O2 Del Method 97.7 F 81 18 120/87 94 Room Air 07/03/23 11:07/03/23 11:07/03/23 11:07/03/23 11:07/03/23 11:07/03/23 11:28 Operation Date: 07/03/23 12:50 Proposed Procedures p Lumbar Spine Decompression l3-l4,l4-l5(Not Applicable) - Terry Sethi, DO Familial anesthetic complications: None Was Beta Samson taken within 24 hours: N/A Was Clonidine taken within 24 hours: N/A Last intake: > 8 hrs Social No alcohol and No tobacco Exam alert, oriented x 3, clear to auscultation bilaterally and regular rate & rhythm Airway Mallampati: Class II Dentition: chipped (Front chipped) Pulmonary Chronic Obstructive Pulmonary Disease and Sleep Apnea Hepatic fatty liver Anesthetic Plan ASA status: 3 Anesthesia: General Risk of > 500 ml blood loss (7ml/kg in children): No Medications/Allergies Home Medications Medication Instructions Recorded Confirmed Last Taken Type olopatadine 0.2 % eye drops 1 drp ophthalmic (eye) PRN PRN Dry 04/13/19 07/03/23 07/02/23 History ([place]) Eyes mupirocin 2 % topical ointment 1 applic topical TID 7 days #22 06/25/20 07/02/23 12/18/21 Rx grams loratadine 10 mg tablet (Claritin) 10 mg PO DAILY 03/08/21 07/02/23 07/02/23 History miscellaneous medical supply See Rx Instructions .Route 10/02/21 07/02/23 Unknown Rx .COMPLEX 30 days #1 ea calcium carbonate 600 mg calcium 600 mg PO BID #180 tabs 02/20/23 07/02/23 07/02/23 Rx (1,500 mg) tablet (Calcium) cholecalciferol (vitamin D3) 50 50 mcg PO DAILY #90 caps 02/20/23 07/02/23 07/02/23 Rx mcg (2,000 unit) capsule solifenacin 10 mg tablet (Vesicare) 10 mg PO DAILY #90 tabs 03/09/23 07/02/23 07/02/23 Rx montelukast 10 mg tablet See Rx Instructions .Route 03/23/23 07/02/23 07/02/23 Rx .COMPLEX #90 tabs alprazolam 1 mg tablet (Xanax) 1 mg PO TID PRN Anxiety #90 tabs 04/29/23 07/03/23 07/03/23 Rx aripiprazole 20 mg tablet (Abilify) 20 mg PO BEDTIME #90 tabs 04/29/23 07/02/23 07/02/23 Rx bupropion HCl 150 mg 24 hr tablet, 150 mg PO .morning #90 tabs 04/29/23 07/02/23 07/02/23 Rx extended release bupropion HCl 300 mg 24 hr tablet, 300 mg PO .morning #90 tabs 04/29/23 07/02/23 07/02/23 Rx extended release duloxetine 30 mg capsule,delayed 30 mg PO .morning #90 caps 04/29/23 07/02/23 07/02/23 Rx release (Cymbalta) duloxetine 60 mg capsule,delayed 60 mg PO .morning #90 caps 04/29/23 07/02/23 07/02/23 Rx release (Cymbalta) hydroxyzine pamoate 25 mg capsule 25 mg PO BID PRN anxiety #60 caps 04/29/23 07/02/23 07/02/23 Rx (Vistaril) trazodone 150 mg tablet 150 mg PO .at bedtime #90 tabs 04/29/23 07/02/23 07/01/23 Rx albuterol sulfate 90 mcg/actuation See Rx Instructions .Route 05/11/23 07/03/23 07/02/23 Rx aerosol inhaler .COMPLEX #8.5 grams fluticasone fur. 100 mcg-umeclid See Rx Instructions .Route 05/25/23 07/02/23 07/02/23 Rx 62.5 mcg-vilant 25 mcg .COMPLEX #60 ea inhalat.powder (Trelegy Ellipta) meloxicam 15 mg tablet 15 mg PO DAILY #30 tabs 05/25/23 07/02/23 06/28/23 Rx liraglutide 0.6 mg/0.1 mL (18 mg/3 See Rx Instructions .Route 06/22/23 07/02/23 07/02/23 Rx mL) subcutaneous pen injector .COMPLEX #6 mL (Victoza 2-Wilbert) dexlansoprazole 60 mg See Rx Instructions .Route 06/25/23 07/02/23 07/02/23 Rx capsule,biphase delayed release .COMPLEX #30 caps baclofen 10 mg tablet See Rx Instructions .Route 07/01/23 07/02/23 07/02/23 Rx .COMPLEX #90 tabs Allergies Allergy/AdvReac Type Severity Reaction Status Date / Time banana Allergy Severe headache Verified 07/02/23 13:17 shellfish derived Allergy Intermediate nausea, Verified 07/02/23 13:17 headache nut - unspecified Allergy Unknown unknown Verified 07/02/23 13:17 reaction PFSH Anesthesia Medical History Panic attacks Nicotine dependence, cigarettes, uncomplicated Psychiatric care Migraine headache Stress incontinence COPD (chronic obstructive pulmonary disease) Insomnia Fibromyalgia Sleep apnea Chronic back pain Chronic post-traumatic stress disorder (PTSD) Bipolar II disorder Bereavement, uncomplicated HSIL (high grade squamous intraepithelial lesion) on Pap smear of cervix Surgical History History of esophagogastroduodenoscopy (EGD) 12/26/21 History of delivery H/O knee surgery bilaterally History of carpal tunnel surgery of right wrist Recent surgical procedure on lower extremity left leg- 2015 S/P hysterectomy Total vaginal hysterectomy with left salpingo-oophorectomy performed on 05/04/2019 Family History Mother Hypertension Heart disease Stroke Hyperlipidemia Father Heart disease Social History Smoking and tobacco/nicotine status: former use of tobacco/nicotine Second hand smoke exposure: Yes Alcohol intake: current Alcohol intake frequency: holidays/special occasions only Alcohol type: hard liquor Substance/Drug Use: never Additional social history: well balanced diet Adopted: No Caregiver/support person: No Lives independently: Yes Household members: none Housing: Apartment Marital status: Single Number of children: 2 Number of grandchildren: 0 Highest education level completed: Associate Degree: Occupational, Technical, V ocational Program service: No Current occupational status: disabled Current occupational exposures/hazards: No Pets and animals: No Leisure activites: art, games and reading Sexually active: No Do you think of yourself as: Straight/Heterosexual Current gender identity: Female 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
[2023-07-03] MEDS: sodium chloride 0.9% 1,000 ML 30 ML IV (11:50)
[2023-07-03] MEDS: midazolam 1 mg/mL INJ 2 mL 2 MG IVP (13:06)
--- NOTE | 2023-07-03 13:18 | W.PM.OPSUD ---
Surgery/Procedure H&P Update DATE OF PROCEDURE: July 03, 2023 DATE H&P PERFORMED: 06/22/23 H&P UPDATE INFORMATION: I have reviewed H&P completed within last 30 days, I have examined patient prior to procedure and No changes to prior documentation PLANNED PROCEDURE: Operation Date: 07/03/23 12:50 Proposed Procedures p Lumbar Spine Decompression l3-l4,l4-l5(Not Applicable) - Terry Sethi DO
[2023-07-03] MEDS: lidocaine-epi 1% 20 mL INJ INJECTION (14:17)
--- NOTE | 2023-07-03 15:10 | P.OP_ITS ---
Operative Report Date of procedure: July 03, 2023 Post-op diagnosis: same Procedure done: 1. L3-4 laminectomy with partial facetectomy 2. L4-5 laminectomy with partial facetectomy Surgeon: Terry Sethi DO Estimated blood loss (mL): 15 Procedure: 1. L3-4 laminectomy with partial facetectomy 2. L4-5 laminectomy with partial facetectomy Patient is brought to the operative suite. After undergoing anesthesia they are placed in the prone position. All areas of impingement are well padded. Patient is then prepped and draped in the normal sterile fashion. A skin incision is made over the L3/4 level. This is confirmed under c-arm guidance. A series of dilators are passed and the tubular retractor is docked on the L3 lamina. A bovie is used to clear the soft tissue off the lamina and the L 3/4 facet joint. A high speed ishmael is then used to perform the laminectomy and take down the medial aspect of the L 3/4 facet joint. A k errison rongeure was then used to take down the remaining lamina and smooth the edge of the laminectomy up to the point where the ligamentum flavum attaches. Attention was then brought to the medial aspect of the facet joint. The remaining medial aspect of the superior and inferior aspect of the facet joint were taken down with the kerrison from the pedicle of L3 to L 4. The facet joint had significant hypertrophy. Attention was then brought to the Ligamentum Flavum. The ligament was taken down from the lamina of L3 to L4 and out medially to the remaining facet joint. The ligament was thick. The dura was then exposed. The dura was in good repair. The L3 nerve was then traced with a curette out the L3/4 foramen and found to be adequately decompressed. The L4 nerve was traced with a curette around the L4 pedicle. The lateral recess was opened with a kerrison helping to further decompress the L4 nerve. Wound is then irrigated copiously with saline and surgiflo is used to stop any bleeding. The tubular retractor is removed and the A skin incision is made over the L4/5 level. This is confirmed under c-arm guidance. A series of dilators are passed and the tubular retractor is docked on the L4 lamina. A bovie is used to clear the soft tissue off the lamina and the L 4/5 facet joint. A high speed ishmael is then used to perform the laminectomy and take down the medial aspect of the L 4/5 facet joint. A kerrison rongeure was then used to take down the remaining lamina and smooth the edge of the laminectomy up to the point where the ligamentum flavum attaches. Attention was then brought to the medial aspect of the facet joint. The remaining medial aspect of the superior and inferior aspect of the facet joint were taken down with the kerrison from the pedicle of L4 to L 5. The facet joint had significant hypertrophy. Attention was then brought to the Ligamentum Flavum. The ligament was taken down from the lamina of L4 to L5 and out medially to the remaining facet joint. The ligament was thick. The dura was then exposed. The dura was in good repair. The L4 nerve was then traced with a curette out the L4/5 foramen and found to be adequately decompressed. The L5 nerve was traced with a curette around the L5 pedicle. The lateral recess was opened with a kerrison helping to further decompress the L5 nerve. Wound is then irrigated copiously with saline and surgiflo is used to stop any bleeding. The tubular retractor is removed and the wound is closed with vicryl and monocryl suture. Glue is then used to protect the wound. A sterile dressing is then placed. Patient was then placed in the supine position and transferred to the PACU in stable condition.
[2023-07-03] MEDS: HYDROcodone-acetaminophen 5-325 mg Tablet 2 TAB PO (16:26)
--- NOTE | 2023-07-03 16:35 | ANE.PACU2 ---
Inpatient post-anesthesia follow up: Airway intact: Yes Vital signs: Temperature 97.0 F Pulse Rate 88 Respiratory Rate 18 Blood Pressure 113/83 Pulse Oximetry 93 Oxygen Delivery Me thod Room Air Oxygen Flow Rate 1 Fraction of Inspir ed Oxygen Hydration adequate: Yes Nausea and vomiting: No Pain level: 1 Mental status: Baseline
== END 2023-07-03 16:38 | disposition home or self-care (01) ==
PROVIDERS: PCP Family Medicine; Visit Provider Orthopaedic Surgery
PROC: (CPT 63005; principal; 2023-07-03 12:40)
DX: M48.062 Spinal stenosis, lumbar region with neurogenic claudication (principal); J44.9 Chronic obstructive pulmonary disease, unspecified; G47.30 Sleep apnea, unspecified; F17.210 Nicotine dependence, cigarettes, uncomplicated; M79.7 Fibromyalgia
CPT/HCPCS: 63047; 63048; 72100; 76000; J0690; J1100; J2250; J2405; J2704; J2710; J3010; J3490; J7030

== ENCOUNTER → 2023-07-14 13:29 | Outpatient (BNVA) | payer MEDICARE, MEDICAID, SELFPAY ==
[2021-06-26 13:35] VITALS: BP 136/80; BMI 42.2
== END ==
PROVIDERS: PCP Family Medicine; Visit Provider Orthopaedic Surgery
DX: Z98.890 Other specified postprocedural states (principal)
CPT/HCPCS: 99024

== ENCOUNTER → 2023-08-11 10:57 | Outpatient (BNVA) | payer MEDICARE, MEDICAID, SELFPAY ==
[2021-06-26 13:35] VITALS: BP 136/80; BMI 42.2
== END ==
PROVIDERS: PCP Family Medicine; Visit Provider Orthopaedic Surgery
DX: M48.062 Spinal stenosis, lumbar region with neurogenic claudication (principal)
CPT/HCPCS: 99024

== ENCOUNTER → 2023-09-15 13:19 | Outpatient (BNVA) | payer MEDICARE, MEDICAID, SELFPAY ==
[2021-06-26 13:35] VITALS: BP 136/80; BMI 42.2
== END ==
PROVIDERS: PCP Family Medicine; Visit Provider Dermatology
DX: L57.0 Actinic keratosis (principal); D48.5 Neoplasm of uncertain behavior of skin; L81.4 Other melanin hyperpigmentation; L82.1 Other seborrheic keratosis; L57.3 Poikiloderma of Civatte
CPT/HCPCS: 11102; 17000; 99203

== ENCOUNTER → 2023-09-22 10:46 | Outpatient (BNVA) | payer MEDICARE, MEDICAID, SELFPAY ==
[2021-06-26 13:35] VITALS: BP 136/80; BMI 42.2
== END ==
PROVIDERS: PCP Family Medicine; Visit Provider Orthopaedic Surgery
DX: Z98.890 Other specified postprocedural states
CPT/HCPCS: 99024

== ENCOUNTER → 2023-10-27 09:57 | Outpatient (BNVA) | payer MEDICARE, MEDICAID, SELFPAY ==
[2021-06-26 13:35] VITALS: BP 136/80; BMI 42.2
== END ==
PROVIDERS: Referring Provider Orthopaedic Surgery; Visit Provider Student in an Organized Health Care Education/Training Program
DX: M25.561 Pain in right knee (principal); M25.562 Pain in left knee; M17.12 Unilateral primary osteoarthritis, left knee
CPT/HCPCS: 20610; 73560; 73565; J3301

== ENCOUNTER → 2023-11-03 10:41 | Outpatient (BNVA) | payer MEDICARE, MEDICAID, SELFPAY ==
[2021-06-26 13:35] VITALS: BP 136/80; BMI 42.2
== END ==
PROVIDERS: Visit Provider Orthopaedic Surgery
DX: Z98.890 Other specified postprocedural states (principal); M50.323 Other cervical disc degeneration at C6-C7 level; M54.9 Dorsalgia, unspecified; M54.6 Pain in thoracic spine
CPT/HCPCS: 72050; 72072; 99214

== ENCOUNTER → 2023-11-12 12:02 | Outpatient (BNVA) | payer MEDICARE, MEDICAID, OTHER, SELFPAY ==
[2021-06-26 13:35] VITALS: BP 136/80; BMI 42.2
== END ==
PROVIDERS: Visit Provider Nurse Practitioner Psychiatric/Mental Health
DX: Z79.899 Other long term (current) drug therapy (principal)
CPT/HCPCS: 80053; 80061; 83036; 83721

== ENCOUNTER → 2023-11-17 09:14 | Outpatient (BNVA) | payer MEDICARE, MEDICAID, OTHER, SELFPAY ==
[2021-06-26 13:35] VITALS: BP 136/80; BMI 42.2
== END ==
PROVIDERS: Visit Provider Physician Assistant
DX: M25.551 Pain in right hip (principal); M25.552 Pain in left hip; M70.61 Trochanteric bursitis, right hip; M70.62 Trochanteric bursitis, left hip
CPT/HCPCS: 20610; 73522; 99213; J3301; J3490

== ENCOUNTER → 2023-12-11 09:51 | Outpatient (BNVA) | payer MEDICARE, MEDICAID, SELFPAY ==
[2021-06-26 13:35] VITALS: BP 136/80; BMI 42.2
== END ==
PROVIDERS: Visit Provider Physician Assistant
DX: M70.61 Trochanteric bursitis, right hip (principal); M70.62 Trochanteric bursitis, left hip
CPT/HCPCS: 20610; 99213; J3301; J3490

== ENCOUNTER 2023-12-15 08:45 | Outpatient (CLI) | payer MEDICARE, MEDICAID, SELFPAY ==
[2021-06-26 13:35] VITALS: BP 136/80; BMI 42.2
--- NOTE | 2023-12-15 08:45 | MR_ITS ---
WS: [id number] MRI CERVICAL SPINE NONCONTRAST HISTORY: cervical pain COMPARISON: 05/13/2011 Technique: Multiplanar, multisequence noncontrast imaging of the cervical spine. Patient is head is tilted to the RIGHT. Signal within the cervical cord is normal. Visualized posterior fossa is unremarkable. Craniocervical junction, C1 and C2 relationship, odontoid process and soft tissues are normal. C2-C3: Normal. C3-C4: Motion artifact. Suspect mild stenosis. C4-C5: Motion artifact. No high-grade central stenosis. C5-C6: Small central disc protrusion. No significant stenosis. C6-C7: Mild disc bulging with a central disc protrusion. Mild osteophytic ridging. Mild central and b ilateral foraminal stenosis with facet joint arthritis. C7-T1: Normal. No paraspinal soft tissue abnormality is identified but there is significant compromise by body habit us and motion. MR/MR cervical spin wo con* [id number] IMPRESSION: 1. Study is compromised by body habitus and motion artifact. 2. C5-6: Small central disc protrusion. No stenosis. 3. C6-7: Small central disc protrusion and facet arthritis. Mild central and b ilateral foraminal stenosis. 4. C3-4: Suspect mild central and foraminal stenosis.
--- NOTE | 2023-12-15 09:30 | MR_ITS ---
WS: [id number] MRI THORACIC SPINE without contrast HISTORY: thoracic pain COMPARISON: 05/29/2011 TECHNIQUE: Multiplanar sequences are performed in sagittal and axial planes. Mild curvature with increased thoracic kyphosis. T1-2: Normal. T2-3: Mild disc bulging and facet arthritis. T3-4: Normal. T4-5: Normal. T5-6: Mild facet arthritis. T6-7: Mild osteophytic ridging. Mild encroachment upon the ventral canal. No high-grade stenosis. T7-8: Moderate central disc protrusion contacts the RIGHT lateral thecal sac and cord. Slight displac ement. Mild foraminal stenosis. T8-9: Tiny central disc protrusion. No stenosis. T9-10: Normal. T10-11: Marked facet joint arthritis. No stenosis. T11-12: Normal. Paravertebral soft tissues are normal. MR/MR thoracic spin wo con* [id number] IMPRESSION: 1. T7-8: Moderate central disc protrusion contacting the thoracic cord with sl ight displacement. Mild foraminal stenosis. 2. No high-grade central or foraminal stenosis. Multilevel facet joint arthrop athy.
== END 2023-12-15 08:48 | disposition home or self-care (01) ==
PROVIDERS: Visit Provider Orthopaedic Surgery
DX: M51.24 Other intervertebral disc displacement, thoracic region (principal); M46.94 Unspecified inflammatory spondylopathy, thoracic region
CPT/HCPCS: 72141; 72146

== ENCOUNTER → 2023-12-29 12:07 | Outpatient (BNVA) | payer MEDICARE, MEDICAID, SELFPAY ==
[2021-06-26 13:35] VITALS: BP 136/80; BMI 42.2
== END ==
DX: R10.9 Unspecified abdominal pain (principal); R39.9 Unspecified symptoms and signs involving the genitourinary system
CPT/HCPCS: 81000; 87086

== ENCOUNTER → 2024-01-07 11:16 | Outpatient (BNVA) | payer MEDICARE, MEDICAID, OTHER, SELFPAY ==
[2021-06-26 13:35] VITALS: BP 136/80; BMI 42.2
== END ==
DX: Z00.00 Encounter for general adult medical examination without abnormal findings (principal); Z11.4 Encounter for screening for human immunodeficiency virus [HIV]; Z11.59 Encounter for screening for other viral diseases
CPT/HCPCS: 86705; 86706; 86709; 86803; 87340; 87806

== ENCOUNTER → 2024-02-11 13:20 | Outpatient (BNVA) | payer MEDICARE, MEDICAID, SELFPAY ==
[2021-06-26 13:35] VITALS: BP 136/80; BMI 42.2
== END ==
PROVIDERS: Visit Provider Orthopaedic Surgery
DX: M54.2 Cervicalgia (principal)
CPT/HCPCS: 99214

== ENCOUNTER → 2024-03-01 09:30 | Outpatient (BNVA) | payer MEDICARE, MEDICAID, SELFPAY ==
[2021-06-26 13:35] VITALS: BP 136/80; BMI 42.2
== END ==
PROVIDERS: Visit Provider Student in an Organized Health Care Education/Training Program
DX: M17.0 Bilateral primary osteoarthritis of knee (principal)
CPT/HCPCS: 20610; 99213; J3301

== ENCOUNTER → 2024-03-22 10:56 | Outpatient (BNVA) | payer MEDICARE, MEDICAID, SELFPAY ==
[2021-06-26 13:35] VITALS: BP 136/80; BMI 42.2
== END ==
PROVIDERS: Visit Provider Orthopaedic Surgery
DX: Z09 Encounter for follow-up examination after completed treatment for conditions other than malignant neoplasm (principal); M70.61 Trochanteric bursitis, right hip; M70.62 Trochanteric bursitis, left hip
CPT/HCPCS: 20610; 99213; J3301; J3490

== ENCOUNTER → 2024-05-03 10:45 | Outpatient (BNVA) | payer MEDICARE, MEDICAID, SELFPAY ==
[2021-06-26 13:35] VITALS: BP 136/80; BMI 42.2
== END ==
PROVIDERS: Visit Provider Physician Assistant
DX: M70.61 Trochanteric bursitis, right hip (principal); M70.62 Trochanteric bursitis, left hip
CPT/HCPCS: 20610; 99213; J3301; J3490

== ENCOUNTER → 2024-06-01 13:42 | Outpatient (BNVA) | payer MEDICARE, MEDICAID, SELFPAY ==
[2021-06-26 13:35] VITALS: BP 136/80; BMI 42.2
== END ==
PROVIDERS: Visit Provider Physician Assistant
DX: M17.0 Bilateral primary osteoarthritis of knee (principal)
CPT/HCPCS: 20610; 99213; J3301

== ENCOUNTER → 2024-06-20 10:19 | Outpatient (BNVA) | payer MEDICARE, MEDICAID, SELFPAY ==
[2021-06-26 13:35] VITALS: BP 136/80; BMI 42.2
== END ==
PROVIDERS: PCP Family Medicine; Visit Provider Family Medicine
DX: D50.9 Iron deficiency anemia, unspecified (principal); R23.3 Spontaneous ecchymoses
CPT/HCPCS: 82728; 83550; 85025; 85730

== ENCOUNTER → 2024-06-22 13:00 | Outpatient (BNVA) | payer MEDICARE, MEDICAID, SELFPAY ==
[2021-06-26 13:35] VITALS: BP 136/80; BMI 42.2
== END ==
PROVIDERS: PCP Family Medicine; Visit Provider Physician Assistant
DX: M25.552 Pain in left hip (principal); G89.29 Other chronic pain; M70.61 Trochanteric bursitis, right hip; M70.62 Trochanteric bursitis, left hip
CPT/HCPCS: 20610; 73502; 99213; J3301; J3490; J9999

== ENCOUNTER 2024-06-23 11:25 | Outpatient (CLI) | payer MEDICARE, MEDICAID, SELFPAY ==
[2021-06-26 13:35] VITALS: BP 136/80; BMI 42.2
[2024-06-23 12:41] LABS: Alanine Aminotransferase 19 U/L (0-33); Alkaline Phosphatase 86 U/L (35-105); Aspartate Amino Transferase 15 U/L (0-32); Blood Urea Nitrogen 15 mg/dL (6-20); Calcium 9.1 mg/dL (8.5-10.5); Carbon Dioxide 27 mmol/L (22-29); Chloride 103 mmol/L (98-107); Glomerular Filtration Rate 127.2 mL/min (90-130); Glucose 91 mg/dL (65-115); Osmolality Calculated 284 mOsm/kg (285-295); Sodium 137 mmol/L (136-145); Total Bilirubin 0.2 mg/dL (0.15-1.2)
[2024-06-23 12:43] LABS: Anion Gap 11.6 (5-19); Potassium 4.6 mmol/L (3.5-5.1)
[2024-06-29 13:13] LABS: Factor Viii, Activity 56 % normal (50-180); Partial Thromboplastin Time, A 32 sec (23-32)
[2024-06-29 13:34] LABS: Von Willebrand Factor (Rcf) 59 % normal (42-200); Von Willebrand Factor Ag 78 % (50-217)
== END 2024-06-23 11:26 | disposition home or self-care (01) ==
LOC: LAB 11:27
PROVIDERS: PCP Family Medicine; Visit Provider Family Medicine
DX: R79.1 Abnormal coagulation profile (principal)
CPT/HCPCS: 11750; 80053; 85240; 85245; 85246; J9999

== ENCOUNTER → 2024-07-11 10:17 | Outpatient (BNVA) | payer MEDICARE, MEDICAID, SELFPAY ==
[2021-06-26 13:35] VITALS: BP 136/80; BMI 42.2
== END ==
PROVIDERS: PCP Family Medicine; Visit Provider Podiatrist Foot & Ankle Surgery
DX: Z98.890 Other specified postprocedural states (principal); L60.3 Nail dystrophy
CPT/HCPCS: 99213

== ENCOUNTER → 2024-08-02 10:56 | Outpatient (BNVA) | payer MEDICARE, MEDICAID, SELFPAY ==
[2021-06-26 13:35] VITALS: BP 136/80; BMI 42.2
== END ==
PROVIDERS: PCP Family Medicine; Visit Provider Physician Assistant
DX: M70.61 Trochanteric bursitis, right hip (principal); M70.62 Trochanteric bursitis, left hip; Z71.89 Other specified counseling
CPT/HCPCS: 20610; 99213; J3301; J3490; J9999

== ENCOUNTER 2024-08-19 07:10 | Outpatient (CLI) | payer MEDICARE, MEDICAID, SELFPAY ==
[2021-06-26 13:35] VITALS: BP 136/80; BMI 42.2
--- NOTE | 2024-08-19 07:30 | USCV_ITS ---
Merlyn Smith Age: 58 Gender: F : 1965 Exam Date: 08/19/2024 07:29 Ordering Phys: Shanon Cabrera DO Technologist: RAVEN Exam Location: [facility] – [place] Indication: LE Edema BP: 126 / 74 HR: 81 Rhythm: Sinus Technical Quality: MEASUREMENTS (Male / Female) Normal Values 2D ECHO LV Diastolic Diameter PLAX 4.8 cm 4.2 - 5.9 / 3.9 - 5.3 cm IVS Diastolic Thickness 0.9 cm 0.6 - 1.0 / 0.6 - 0.9 cm IVS Systolic Thickness 1.2 cm LVPW Diastolic Thickness 1.1 cm 0.6 - 1.0 / 0.6 - 0.9 cm LVPW Systolic Thickness 0.9 cm LVOT Diameter 2.0 cm LV Ejection Fraction 2D Teich 59.1 % LV Ejection Fraction MOD 4C 62.6 % LV Ejection Fraction MOD 2C 63.5 % LV Ejection Fraction 2C AL 64.5 % LA Diameter 3.7 cm RA Systolic Volume 4C AL 32.0 ml RA Systolic Volume 4C MOD 31.9 ml LA Sys Volume AL 39.6 cm cubed LA Sys Volume Index AL 18.4 cm cubed/m squared Aorta at Sinotubular Diameter 2.6 cm M-MODE LA Ao Ratio MM 1.4 AV Cusp Separation MM 1.5 cm DOPPLER AV Peak Velocity 164.0 cm/s LVOT Peak Velocity 134.0 cm/s AV Area Cont Eq vti 2.8 cm squared AV Area Cont Eq pk 2.5 cm squared MV Peak Velocity 123.0 cm/s MV Area PHT 6.0 cm squared Mitral E to A Ratio 0.5 TR Peak Velocity 66.0 cm/s TR Peak Gradient 1.7 mmHg TV Peak E Velocity 66.0 cm/s PV Peak Velocity 104.0 cm/s FINDINGS Left Ventricle Normal left ventricular size, systolic function and wall thickness, with no regional wall motion abnormalities. Left ventricular ejection fraction is estimated at 62 %. Right Ventricle Normal right ventricular size and systolic function. Right Atrium Normal right atrial size. Left Atrium Normal left atrial size. Mitral Valve Mildly thickened mitral valve. Mild mitral annular calcification. No mitral stenosis Aortic Valve Mildly thickened aortic valve. Trace aortic regurgitation Tricuspid Valve Structurally normal tricuspid valve. No tricuspid valve regurgitation. Pulmonic Valve Structurally normal pulmonic valve. Trace pulmonary valve regurgitation. Pericardium Trace pericardial effusion primarily on the anterior surface. Aorta Normal size aortic root and proximal ascending aorta. IVC Normal inferior vena cava. CONCLUSIONS Normal left ventricular size and systolic function. LVEF normal 62%. No LVH. Normal chamber sizes. Mildly thickened aortic and mitral valves without any significant abnormality. Normal right heart and pulmonary pressures. Casie Mei MD (Electronically Signed) Final Date: 19 Aug 2024 09:31 S
== END 2024-08-19 07:11 | disposition home or self-care (01) ==
PROVIDERS: PCP Family Medicine; Visit Provider Family Medicine
DX: R60.0 Localized edema (principal); I34.81 Nonrheumatic mitral (valve) annulus calcification; I35.8 Other nonrheumatic aortic valve disorders
CPT/HCPCS: 93306

== ENCOUNTER → 2024-08-30 13:16 | Outpatient (BNVA) | payer MEDICARE, MEDICAID, SELFPAY ==
[2021-06-26 13:35] VITALS: BP 136/80; BMI 42.2
== END ==
PROVIDERS: PCP Family Medicine; Visit Provider Physician Assistant
DX: M17.0 Bilateral primary osteoarthritis of knee (principal); Z71.89 Other specified counseling
CPT/HCPCS: 20610; 99213; J3301; J9999

== ENCOUNTER → 2024-09-12 10:50 | Outpatient (BNVA) | payer MEDICARE, MEDICAID, SELFPAY ==
[2021-06-26 13:35] VITALS: BP 136/80; BMI 42.2
== END ==
PROVIDERS: PCP Family Medicine; Visit Provider Nurse Practitioner Family
DX: D69.2 Other nonthrombocytopenic purpura (principal); S50.911A Unspecified superficial injury of right forearm, initial encounter; S50.912A Unspecified superficial injury of left forearm, initial encounter; X58.XXXA Exposure to other specified factors, initial encounter; L82.1 Other seborrheic keratosis; L57.3 Poikiloderma of Civatte; L81.4 Other melanin hyperpigmentation; D48.5 Neoplasm of uncertain behavior of skin
CPT/HCPCS: 11102; 99213

== ENCOUNTER → 2024-09-27 13:21 | Outpatient (BNVA) | payer MEDICARE, MEDICAID, SELFPAY ==
[2021-06-26 13:35] VITALS: BP 136/80; BMI 42.2
== END ==
PROVIDERS: PCP Family Medicine; Visit Provider Physician Assistant
DX: M70.61 Trochanteric bursitis, right hip (principal); M70.62 Trochanteric bursitis, left hip
CPT/HCPCS: 20610; 99213; J3301; J3490; J9999

== ENCOUNTER → 2024-10-03 12:13 | Outpatient (BNVA) | payer MEDICARE, MEDICAID, OTHER, SELFPAY ==
[2021-06-26 13:35] VITALS: BP 136/80; BMI 42.2
== END ==
PROVIDERS: PCP Family Medicine; Visit Provider Nurse Practitioner Psychiatric/Mental Health
DX: R06.02 Shortness of breath (principal); R60.0 Localized edema; Z79.899 Other long term (current) drug therapy
CPT/HCPCS: 80053; 80061; 83036; 83880

== ENCOUNTER → 2024-10-25 13:01 | Outpatient (BNVA) | payer BC, MEDICAID, SELFPAY ==
[2021-06-26 13:35] VITALS: BP 136/80; BMI 42.2
== END ==
PROVIDERS: PCP Family Medicine; Visit Provider Family Medicine
DX: R60.0 Localized edema (principal)
CPT/HCPCS: 80048

== ENCOUNTER → 2024-11-02 11:22 | Outpatient (BNVA) | payer MEDICAID, SELFPAY ==
[2021-06-26 13:35] VITALS: BP 136/80; BMI 42.2
== END ==
PROVIDERS: PCP Family Medicine; Visit Provider Physician Assistant
DX: M70.61 Trochanteric bursitis, right hip (principal)
CPT/HCPCS: 20610; 99213; J3301; J3490; J9999

== ENCOUNTER → 2024-12-06 13:40 | Outpatient (BNVA) | payer MEDICARE, MEDICAID, SELFPAY ==
[2024-11-18 15:50] VITALS: BP 153/88; BMI 39.7
== END ==
PROVIDERS: PCP Family Medicine; Visit Provider Physician Assistant
DX: M17.0 Bilateral primary osteoarthritis of knee (principal); Z71.89 Other specified counseling
CPT/HCPCS: 20610; 99213; J3301; J9999

== ENCOUNTER → 2024-12-08 09:30 | Outpatient (BNVA) | payer MEDICARE, MEDICAID, SELFPAY ==
[2024-11-18 15:50] VITALS: BP 153/88; BMI 39.7
== END ==
PROVIDERS: PCP Family Medicine; Visit Provider Family Medicine
DX: R60.0 Localized edema (principal)
CPT/HCPCS: 80048

== ENCOUNTER → 2025-01-03 09:34 | Outpatient (BNVA) | payer MEDICARE, MEDICAID, SELFPAY ==
[2024-11-18 15:50] VITALS: BP 153/88; BMI 39.7
== END ==
PROVIDERS: PCP Family Medicine; Visit Provider Physician Assistant
DX: M70.62 Trochanteric bursitis, left hip (principal); Z71.89 Other specified counseling
CPT/HCPCS: 20610; 99213; J3301; J3490; J9999

== ENCOUNTER 2025-01-10 05:14 | Emergency (ER) | payer MEDICARE, MEDICAID, SELFPAY ==
[2024-11-18 15:50] VITALS: BP 153/88; BMI 39.7
[2025-01-10 05:19] VITALS: BP 151/82; PULSE 92; RESP 17; TEMP 36.7; O2SAT 93; BMI 36.6
[2025-01-10 05:28] VITALS: BP 151/80; PULSE 96; O2SAT 96
[2025-01-10] MEDS: lidocaine-epi 1% 20 mL INJ INJECTION (05:40)
--- NOTE | 2025-01-10 06:19 | ED_ITS ---
HPI - Wound/Laceration General: Chief Complaint: Wound/Laceration Stated Complaint: lac on left leg Time Seen by Provider: 01/10/25 05:16 History of Present Illness: 59-year-old female extensive medical his tory significant for COPD, fatty liver, chronic leg edema, fibromyalgia, bipolar disorder, presenting to emergency department with right lower extremity laceration, reports that she woke up this morning, her dog jumped off her leg causing its nail to digging into her leg and scratched it which caused a large laceration and significant bleeding. No other injuries endorsed, otherwise in usual state of health Related Data Home Medications ?Medication ?Instructions ?Recorded ?Confirmed olopatadine 0.2 % eye drops 1 drp ophthalmic (eye) PRN PRN Dry 04/13/19 01/03/25 (Pataday) Eyes loratadine 10 mg tablet (Claritin) 10 mg PO DAILY 1206/2401/03/25 buprenorphine 15 mcg/hour weekly 1 patch transdermal Q 7D 07/01/24 01/03/25 transdermal patch mupirocin 2 % topical ointment 1 applic topical BID 01/03/25 (Centany) epinephrine 0.3 mg/0.3 mL 0.3 mg IM Q10M PRN 10/20/24 01/03/25 injection, auto-injector Previous Rx's ?Medication ?Instructions ?Recorded miscellaneous medical supply See Rx Instructions .Rout e 10/02/21 .COMPLEX 30 days #1 ea calcium carbonate (Calcium 600) 600 mg PO BID #180 tab s 02/20/23 cholecalciferol (vitamin D3) 50 50 mcg PO DAILY #90 ca ps 02/20/23 mcg (2,000 unit) capsule fluticasone fur. 100 mcg-umeclid See Rx Instructions . Route 05/25/23 62.5 mcg-vilant 25 mcg .COMPLEX #60 ea inhalat.powder (Trelegy Ellipta) albuterol sulfate 90 mcg/actuation See Rx Instructions .Route 06/20/24 aerosol inhaler .COMPLEX #8.5 grams meloxicam 15 mg tablet See Rx Instructions .Route 0 07/18/24 .COMPLEX #90 tabs nystatin 100,000 unit/gram topical 1 applic topical BI D #60 grams 08/01/24 powder hydroxyzine pamoate 25 mg capsule 25 mg PO BID PRN anx iety #60 caps 08/25/24 (Vistaril) montelukast 10 mg tablet See Rx Instructions .Route 0 09/14/24 .COMPLEX #90 tabs baclofen 10 mg tablet 10 mg PO Q8H PRN muscle spas m #90 10/17/24 tabs furosemide 40 mg tablet 40 mg PO QAM #30 tabs potassium chloride 20 mEq oral 20 meq PO DAILY #30 ea 12/12/24 packet (Klor-Con) dexlansoprazole 60 mg See Rx Instructions .Route 0 12/16/24 capsule,biphase delayed release .COMPLEX #30 caps solifenacin 10 mg tablet (Vesicare) 10 mg PO DAILY #90 tabs 12/16/24 alprazolam 1 mg tablet (Xanax) 1 mg PO TID PRN Anxiety #90 tabs 01/02/25 aripiprazole 20 mg tablet (Abilify) 20 mg PO BEDTIME # 90 tabs 01/02/25 aripiprazole 5 mg tablet (Abilify) 5 mg PO BEDTIME #90 tabs 01/02/25 bupropion HCl 150 mg 24 hr tablet, 150 mg PO .morning #90 tabs 01/02/25 extended release bupropion HCl 300 mg 24 hr tablet, 300 mg PO .morning #90 tabs 01/02/25 extended release duloxetine 60 mg capsule,delayed 120 mg (2 x 60 mg) PO .morning 01/02/25 release #180 caps trazodone 150 mg tablet 150 mg PO .at bedtime #90 ta bs 01/02/25 amoxicillin 875 mg-potassium 1 tab PO BID 7 days #14 t abs 01/10/25 clavulanate 125 mg tablet Allergies Allergy/AdvReac Type Severity Reaction Status Date / Time banana Allergy Severe headache Verified 01/03/25 09:49 shellfish derived Allergy Intermediate nausea, Verified 01/03/25 09:49 headache nut - unspecified Allergy Unknown unknown Verified 01/03/25 09:49 reaction PFSH ED PFSH: Medical History Influenza vaccination administered at current visit Medicare annual wellness visit, subsequent Panic attacks Psychiatric care Migraine headache Stress incontinence COPD (chronic obstructive pulmonary disease) Insomnia Fibromyalgia Sleep apnea On CPAP nightly Chronic back pain Chronic post-traumatic stress disorder (PTSD) Bipolar II disorder Bereavement, uncomplicated HSIL (high grade squamous intraepithelial lesion) on Pap smear of cervix Surgical History History of esophagogastroduodenoscopy (EGD) 12/26/21 History of delivery H/O knee surgery bilaterally History of carpal tunnel surgery of right wrist Recent surgical procedure on lower extremity left leg- 2015 S/P hysterectomy Total vaginal hysterectomy with left salpingo-oophorectomy performed on 05/04/2019 Family History Mother Hypertension Heart disease Stroke Hyperlipidemia Father Heart disease Social History Smoking and tobacco/nicotine status: former use of tobacco/nicotine Quit status (tobacco/nicotine): has quit using Former quit date comment: 5 months ago but still puffs on a vape every once in a while Second hand smoke exposure: No Alcohol intake: former Substance/Drug Use: current Substance/Drug use frequency: few times a week Additional social history: well balanced diet Adopted: No Caregiver/support person: No Lives independently: Yes Household members: none Housing: House Marital status: Marital status details: 20 years ago Number of children: 2 Number of grandchildren: 1 Highest education level completed: Associate Degree: Occupational, Technical, Vocational Program Education level details: Cosmetology service: No Current occupational status: disabled Current occupational exposures/hazards: No Pets and animals: Yes Pets & animals: dog(s) Leisure activites: music, games and reading Sexually active: No Do you think of yourself as: Straight/Heterosexual Current gender identity: Female Barbara/Cheondoism: Christianity Special barbara needs: No Agree to transfusion: Yes Female Reproductive History: Para: 2 Spontaneous abortions: No Date of menopause: 04/27/18 Physical Exam Narrative: EXAM NARRATIVE: Gen: A&Ox4, no acute distress, nontoxic appearing HEENT: Normocephalic, atraumatic, no scleral icterus, external ears normal, moist mucous membranes Neck: Supple, full range of motion, no observable masses Lungs: No Respiratory distress, Lungs clear to auscultation bilaterally no rales, rhonchi, wheezing CV: Regular rate and rhythm, no murmur Abdomen: Soft, nondistended, nontender to palpation MSK: No joint swelling, FROM all 4 extremities, significant pitting edema to the bilateral lower extremities, chronic, right lower extremity has a large curvilinear approximately 10 cm laceration to the medial aspect of the lópez region, this is a skin flap exposed underlying subcutaneous tissue, no deep wounds deep to the subcu tissue, no involvement of muscle, flap itself appears generally well-perfused although there are some areas of duskiness in the corners Skin: See MSK exam Neuro: Alert and oriented, no slurred speech, sensation and strength grossly intact all 4 extremities Psych: Appropriate for situation. Procedures Laceration Laceration 1: Site: lower extremity Side (If applicable): right Size (cm): 10 Description: flap and irregular Depth: simple, single layer Local Anesthetic: lidocaine 1% and with epi Amount of anesthesia used (mL): 15 Skin layer closed with: nylon Size (cm): 3-0 Number of sutures: 13 Course Vital Signs: Vital signs: Vital Signs Temperature 98.1 F 01/10/25 05:19 Pulse Rate 96 01/10/25 05:28 Respiratory Rate 17 01/10/25 05:19 Blood Pressure 151/80 01/10/25 05:28 Pulse Oximetry 96 01/10/25 05:28 Oxygen Delivery Me thod Room Air 01/10/25 05:19 MDM - Wound/Laceration Medical Decision Making 51-year-old female medical history most significant for chronic lower extremity edema presenting with right lower extremity laceration, flap laceration with somewhat preserved perfusion to the flap segment, up-to-date on tetanus within the last 5 years per her report, wound was extensively irrigated, anesthetized with lidocaine with epinephrine, and closed with 3-0 nylon sutures with loose approximation under minimal tension to attempt to increase chance of flap taking, I did discuss with her that this may not salvage the area and the skin may off, I do given her chronic lower extremity edema suspect she has a high risk for poor wound healing and recommend that she do daily dressing changes after the first 48 hours of healing, will prescribe prophylactic antibiotics to reduce the risk of infection No radiology studies performed this visit Discharge Plan Discharge Patient Disposition: Home Clinical Impression: Laceration Condition: Stable Prescriptions: New amoxicillin-pot clavulanate 875-125 mg tablet 1 tab PO BID 7 Days Qty: 14 0RF No Action loratadine [Claritin] 10 mg tablet 10 mg PO DAILY miscellaneous medical supply Kit See Rx Instructions .ROUTE .COMPLEX 30 Days Qty: 1 12RF Rx Instructions: Please issue oxygen concentrator for home use at night, 2L with CPAP. Trelecarol Ellipta 100-62.5-25 mcg blister with device See Rx Instructions .ROUTE .COMPLEX Qty: 60 5RF Dose Instruction: INHALE 1 PUFF TWICE DAILY Rx Instructions: INHALE 1 PUFF TWICE DAILY buprenorphine 15 mcg/hour patch weekly 1 patch transdermal Q7D albuterol sulfate 90 mcg/actuation HFA aerosol inhaler See Rx Instructions .ROUTE .COMPLEX Qty: 8.5 3RF Dose Instruction: INHALE TWO PUFFS BY MOUTH FOUR TIMES DAILY as needed for COUGH Rx Instructions: INHALE TWO PUFFS BY MOUTH FOUR TIMES DAILY as needed for COUGH hydroxyzine pamoate [Vistaril] 25 mg capsule 25 mg PO BID PRN (Reason: anxiety) Qty: 60 6RF Rx Instructions: Take one capsule twice per day as needed for anxiety nystatin 100,000 unit/gram powder 1 applic topical BID Qty: 60 4RF mupirocin [Centany] 2 % ointment 1 applic topical BID epinephrine 0.3 mg/0.3 mL auto-injector 0.3 mg IM Q10M PRN Rx Instructions: for 2 doses calcium carbonate [Calcium 600] 600 mg calcium (1,500 mg) tablet 600 mg PO BID Qty: 180 0RF cholecalciferol (vitamin D3) 50 mcg (2,000 unit) capsule 50 mcg PO DAILY Qty: 90 0RF meloxicam 15 mg tablet See Rx Instructions .ROUTE .COMPLEX Qty: 90 1RF Dose Instruction: TAKE 1 TABLET BY MOUTH EVERY DAY Rx Instructions: TAKE 1 TABLET BY MOUTH EVERY DAY montelukast 10 mg tablet See Rx Instructions .ROUTE .COMPLEX Qty: 90 1RF Dose Instruction: TAKE 1 TABLET BY MOUTH EVERY DAY Rx Instructions: TAKE 1 TABLET BY MOUTH EVERY DAY baclofen 10 mg tablet 10 mg PO Q8H PRN (Reason: muscle spasm) Qty: 90 3RF furosemide 40 mg tablet 40 mg PO QAM Qty: 30 0RF potassium chloride [Klor-Con] 20 mEq packet 20 meq PO DAILY Qty: 30 0RF solifenacin [Vesicare] 10 mg tablet 10 mg PO DAILY Qty: 90 1RF Rx Instructions: TAKE 1 TABLET BY MOUTH EVERY DAY dexlansoprazole 60 mg capsule,biphase delayed releas See Rx Instructions .ROUTE .COMPLEX Qty: 30 3RF Dose Instruction: TAKE 1 CAPSULE BY MOUTH EVERY DAY Rx Instructions: TAKE 1 CAPSULE BY MOUTH EVERY DAY alprazolam [Xanax] 1 mg tablet 1 mg PO TID PRN (Reason: Anxiety) Qty: 90 3RF Rx Instructions: Take one tablet three times per day as needed for anxiety aripiprazole [Abilify] 5 mg tablet 5 mg PO BEDTIME Qty: 90 2RF Rx Instructions: Take one tablet at bedtime with 20 mg tab, total dose 25 mg aripiprazole [Abilify] 20 mg tablet 20 mg PO BEDTIME Qty: 90 2RF Rx Instructions: Take one tablet at bedtime with 5 mg tab, total dose 25 mg bupropion HCl 300 mg tablet extended release 24 hr 300 mg PO .morning Qty: 90 2RF Rx Instructions: Take one tablet every morning bupropion HCl 150 mg tablet extended release 24 hr 150 mg PO .morning Qty: 90 2RF Rx Instructions: Take one tablet every morning duloxetine 60 mg capsule,delayed release(DR/EC) 120 mg PO .morning Qty: 180 2RF Rx Instructions: Take two capsule every morning trazodone 150 mg tablet 150 mg PO .at bedtime Qty: 90 2RF Rx Instructions: Take one tablet at bedtime olopatadine [Pataday] 0.2 % drops 1 drp ophthalmic (eye) PRN PRN (Reason: Dry Eyes) Discharge Orders: Discharge ED (Routine); Ordered 01/10/25 Ordered By: Odell Sepulveda Referrals: Shanon Cabrera DO [Primary Care Provider, Family Practice] Patient Instructions: Laceration (ED), Patient Portal & [place] Instructions Activity Restrictions/Additional Instructions: Return in 10 days for suture removal Print Language: Australian Coding Level of Care Code ED Occupational Health Rn for Kerry Montes De Oca
== END 2025-01-10 06:55 | disposition home or self-care (01) ==
PROVIDERS: Emergency Provider Student in an Organized Health Care Education/Training Program; PCP Family Medicine
DX: S81.811A Laceration without foreign body, right lower leg, initial encounter (principal); Z87.891 Personal history of nicotine dependence; J44.9 Chronic obstructive pulmonary disease, unspecified; W54.8XXA Other contact with dog, initial encounter
CPT/HCPCS: 12004; 99283; J9999

== ENCOUNTER → 2025-01-25 08:04 | Outpatient (BNVA) | payer MEDICARE, MEDICAID, SELFPAY ==
[2024-11-18 15:50] VITALS: BP 153/88; BMI 39.7
== END ==
PROVIDERS: PCP Family Medicine; Visit Provider Thoracic Surgery (Cardiothoracic Vascular Surgery)
DX: I96 Gangrene, not elsewhere classified (principal); S81.811A Laceration without foreign body, right lower leg, initial encounter; S81.812A Laceration without foreign body, left lower leg, initial encounter; X58.XXXA Exposure to other specified factors, initial encounter
CPT/HCPCS: 11042; 11045; 97597; 99213

== ENCOUNTER → 2025-02-01 09:20 | Outpatient (BNVA) | payer MEDICARE, MEDICAID, SELFPAY ==
[2024-11-18 15:50] VITALS: BP 153/88; BMI 39.7
== END ==
PROVIDERS: PCP Family Medicine; Visit Provider Thoracic Surgery (Cardiothoracic Vascular Surgery)
DX: I96 Gangrene, not elsewhere classified (principal); S81.811D Laceration without foreign body, right lower leg, subsequent encounter; S81.812D Laceration without foreign body, left lower leg, subsequent encounter; X58.XXXD Exposure to other specified factors, subsequent encounter
CPT/HCPCS: 11042; 97597

== ENCOUNTER → 2025-02-07 10:13 | Outpatient (BNVA) | payer MEDICARE, MEDICAID, SELFPAY ==
[2024-11-18 15:50] VITALS: BP 153/88; BMI 39.7
== END ==
PROVIDERS: PCP Family Medicine; Visit Provider Physician Assistant
DX: M70.61 Trochanteric bursitis, right hip (principal)
CPT/HCPCS: 20610; 73523; 99213; J3301; J3490; J9999

== ENCOUNTER → 2025-02-09 08:56 | Outpatient (BNVA) | payer MEDICARE, MEDICAID, SELFPAY ==
[2024-11-18 15:50] VITALS: BP 153/88; BMI 39.7
== END ==
PROVIDERS: PCP Family Medicine; Visit Provider Thoracic Surgery (Cardiothoracic Vascular Surgery)
DX: I96 Gangrene, not elsewhere classified (principal); S81.811D Laceration without foreign body, right lower leg, subsequent encounter; S81.812D Laceration without foreign body, left lower leg, subsequent encounter; X58.XXXD Exposure to other specified factors, subsequent encounter
CPT/HCPCS: 97597; 97598

== ENCOUNTER → 2025-02-22 14:35 | Outpatient (BNVA) | payer MEDICARE, MEDICAID, SELFPAY ==
[2024-11-18 15:50] VITALS: BP 153/88; BMI 39.7
== END ==
PROVIDERS: PCP Family Medicine; Visit Provider Physician Assistant
DX: M25.511 Pain in right shoulder (principal); M25.512 Pain in left shoulder; M75.41 Impingement syndrome of right shoulder; M75.42 Impingement syndrome of left shoulder; I96 Gangrene, not elsewhere classified; S81.811D Laceration without foreign body, right lower leg, subsequent encounter; S81.812D Laceration without foreign body, left lower leg, subsequent encounter; X58.XXXD Exposure to other specified factors, subsequent encounter
CPT/HCPCS: 20610; 73030; 97597; 99213; A6212; A6213; J3301; J9999

== ENCOUNTER → 2025-03-08 11:38 | Outpatient (BNVA) | payer MEDICARE, MEDICAID, SELFPAY ==
[2024-11-18 15:50] VITALS: BP 153/88; BMI 39.7
== END ==
PROVIDERS: PCP Family Medicine; Visit Provider Physician Assistant
DX: M17.0 Bilateral primary osteoarthritis of knee (principal); Z71.89 Other specified counseling
CPT/HCPCS: 20610; 73560; 73565; 99213; J3301; J9999

== ENCOUNTER → 2025-03-17 09:08 | Outpatient (BNVA) | payer MEDICARE, MEDICAID, SELFPAY ==
[2024-11-18 15:50] VITALS: BP 153/88; BMI 39.7
== END ==
PROVIDERS: PCP Family Medicine; Visit Provider Thoracic Surgery (Cardiothoracic Vascular Surgery)
DX: I96 Gangrene, not elsewhere classified (principal); S61.511D Laceration without foreign body of right wrist, subsequent encounter; S81.812D Laceration without foreign body, left lower leg, subsequent encounter; X58.XXXD Exposure to other specified factors, subsequent encounter
CPT/HCPCS: 97597; A6248; J9999

== ENCOUNTER → 2025-03-24 09:01 | Outpatient (BNVA) | payer MEDICARE, MEDICAID, SELFPAY ==
[2024-11-18 15:50] VITALS: BP 153/88; BMI 39.7
== END ==
PROVIDERS: PCP Family Medicine; Visit Provider Thoracic Surgery (Cardiothoracic Vascular Surgery)
DX: I96 Gangrene, not elsewhere classified (principal); S81.812D Laceration without foreign body, left lower leg, subsequent encounter; S61.511D Laceration without foreign body of right wrist, subsequent encounter; X58.XXXD Exposure to other specified factors, subsequent encounter
CPT/HCPCS: 97597; A6212; J9999